=== PATIENT | female | born 1995 | race Caucasian/White ===

== ENCOUNTER 2017-04-20 12:04 | Emergency (ER) | payer MEDICAID ==
[2017-04-20 12:26] VITALS: BP 107/61
[2017-04-20] MEDS ORDERED: NORMAL SALINE 1000 ML 1,000 ML IV PRN (14:39)
--- NOTE | 2017-04-20 14:43 | ER Document Report ---
ED Medical Screen (RME) - General Chief Complaint: Vaginal Bleeding Stated Complaint: VAGINAL BLEEDING Time Seen by Provider: 04/20/17 14:32 Mode of Arrival: Ambulatory Information source: Patient, Parent TRAVEL OUTSIDE OF THE [place] IN LAST 30 DAYS: No - HPI Notes: 04/20/17 14:40 22-year-old 2 para 0 type I diabetic who is 10 weeks 5 days presents today with complaints of vaginal bleeding and lower abdominal pain that started 6 days ago but reports she started hemorrhaging this morning going through 5 pads an hour. Reports she was seen by her QUALITY AUDITOR, Dr. Anand, told she was likely miscarrying. Denies any fevers or chills. Patient checked her blood sugar prior to coming to emergency room, states blood sugar was 208. Reports pain is 5 out of 10, throbbing achy. Worse with time, nothing makes better. Has not tried any ppjx-kdl-[id number] medications. I have greeted and performed a rapid initial assessment of this patient. A comprehensive ED assessment and evaluation of the patient, analysis of test results and completion of medical decision making process will be conducted by an additional ED providers. - Related Data Allergies/Adverse Reactions: amoxicillin Allergy (Verified 04/20/17 12:06) Past Medical History - General Information source: Patient, Parent - Social History Family history: Reviewed & Not Pertinent Review of Systems - Review of Systems Constitutional: No symptoms reported EENT: No symptoms reported Cardiovascular: No symptoms reported Respiratory: No symptoms reported Gastrointestinal: No symptoms reported Genitourinary: See HPI Female Genitourinary: See HPI Musculoskeletal: No symptoms reported Skin: No symptoms reported Hematologic/Lymphatic: No symptoms reported Neurological/Psychological: No symptoms reported Physical Exam - Vital signs Vitals: Temp Pulse Resp BP Pulse Ox 98.6 F 103 H 16 107/61 99 04/20/17 12:19 04/20/17 12:19 04/20/17 12:19 04/20/17 12:19 04/20/17 12:19 - Respiratory Respiratory status: No respiratory distress Chest status: Nontender Breath sounds: Normal Chest palpation: Normal - Cardiovascular Rhythm: Regular Heart sounds: Normal auscultation Murmur: No Normal capillary refill: No - Abdominal Inspection: Normal Distension: No distension Bowel sounds: Normal Tenderness: Tender - suprapubic area. No: McBurney's point, Bynum's sign Organomegaly: No organomegaly Course - Vital Signs Vital signs: Temp Pulse Resp BP Pulse Ox 98.6 F 103 H 16 107/61 99 04/20/17 12:19 04/20/17 12:19 04/20/17 12:19 04/20/17 12:19 04/20/17 12:19
[2017-04-20] MEDS ORDERED: KETOROLAC TROMETHAMINE INJ/PF 30 MG/1 ML SDV IV ONE (15:35)
--- NOTE | 2017-04-20 15:35 | RADIOLOGY REPORT (SQ) ---
EXAM DESCRIPTION: U/S OB TRANSVAG W/DOPPLER COMPLETED DATE/TIME: 04/20/2017 3:25 pm REASON FOR STUDY: 10 weeks 5 days, vag bleed, 4 pads/hr COMPARISON: None. TECHNIQUE: Transvaginal static and realtime grayscale images acquired of the pelvis. Additional catherine cted spectral and color Doppler images recorded. All images stored on PACs. BHCG: Not available. LIMITATIONS: None. FINDINGS: UTERUS: No visualized intrauterine . Thickened heterogeneous endometrium with fl uid in the cervix. RIGHT ADNEXA: Normal ovary with normal vascular flow. No adnexal free fluid. No adnexal masses. LEFT ADNEXA: Ovary not identified. No adnexal free fluid. No adnexal masses. FREE FLUID: None. OTHER: No other significant finding. IMPRESSION: NO VISUALIZED INTRA- OR EXTRAUTERINE . bHCG LEVEL NOT AVAILABLE FOR CORRELATION WITH US FINDINGS. ECTOPIC CANNOT BE EXCLUDED. FOLLOW-UP ULTRASOUND AND SERIAL BHCG LEVELS STRONGLY RECOMMENDED TO ACCURATELY ASSESS STATU S. TECHNICAL DOCUMENTATION: JOB ID: [id number] [employer]- All Rights Reserved
[2017-04-20 16:14] LABS: ABSOLUTE BASOPHILS # (AUTO) 0.1 10^3/uL (0.0-0.2); ABSOLUTE EOSINOPHILS # (AUTO) 0.2 10^3/uL (0.0-0.6); ABSOLUTE LYMPHOCYTES (AUTO) 1.6 10^3/uL (0.5-4.7); ABSOLUTE MONOCYTES (AUTO) 0.4 10^3/uL (0.1-1.4); ABSOLUTE NEUT (AUTO) 8.3 10^3/uL (1.7-8.2); BASOPHILS % (AUTO) 0.5 % (0-2); EOSINOPHILS % (AUTO) 2.3 % (0-6); HEMATOCRIT 40.1 % (36.0-47.0); HEMOGLOBIN 13.9 g/dL (12.0-15.5); LYMPHOCYTES % (AUTO) 15.5 % (13-45); MEAN CORPUSCULAR HGB CONC 34.6 g/dL (32.0-36.0); MEAN CORPUSCULAR VOLUME 93 fl (80-97); MONOCYTES % (AUTO) 3.4 % (3-13); PLATELET COUNT 318 10^3/uL (150-450); RED BLOOD COUNT 4.34 10^6/uL (3.72-5.28); RED CELL DISTRIBUTION WIDTH 13.2 % (11.5-14.0); SEGMENTED NEUTROPHILS % (AUTO) 78.3 % (42-78); TOTAL CELLS COUNTED % (AUTO) 100 %; WHITE BLOOD COUNT 10.5 10^3/uL (4.0-10.5)
[2017-04-20 16:18] LABS: ALANINE AMINOTRANSFERASE 23 U/L (9-52); ALBUMIN 4.7 g/dL (3.5-5.0); ALKALINE PHOSPHATASE 72 U/L (38-126); ANION GAP 13 (5-19); ASPARTATE AMINO TRANSFERASE 21 U/L (14-36); BILIRUBIN,TOTAL 1.4 mg/dL (0.2-1.3); BLOOD UREA NITROGEN 10 mg/dL (7-20); CALCIUM 10.3 mg/dL (8.4-10.2); CARBON DIOXIDE 24 mmol/L (22-30); CHLORIDE 103 mmol/L (98-107); GLUCOSE 236 mg/dL (75-110); POTASSIUM 4.5 mmol/L (3.6-5.0); SODIUM 139.5 mmol/L (137-145); TOTAL PROTEIN 7.7 g/dL (6.3-8.2)
[2017-04-20 17:13] LABS: APPEARANCE,URINE SLIGHTLY-CLOUDY; BILIRUBIN,URINE NEGATIVE (NEGATIVE); COLOR,URINE YELLOW; GLUCOSE, URINE 150 mg/dL (NEGATIVE); KETONES,URINE NEGATIVE (NEGATIVE); LEUKOCYTE ESTERASE,URINE NEGATIVE (NEGATIVE); NITRITE,URINE NEGATIVE (NEGATIVE); PROTEIN,URINE 30 mg/dL (NEGATIVE); URINE SPECIFIC GRAVITY 1.028; UROBILINOGEN,URINE NEGATIVE mg/dL (<2.0)
--- NOTE | 2017-04-20 18:45 | ER Document Report ---
ED General - General Chief Complaint: Vaginal Bleeding Stated Complaint: VAGINAL BLEEDING Time Seen by Provider: 04/20/17 14:32 Mode of Arrival: Ambulatory TRAVEL OUTSIDE OF THE [place] IN LAST 30 DAYS: No - HPI Notes: 22-year-old 2 para 0 type I diabetic who is 10 weeks 5 days presents today with complaints of vaginal bleeding and lower abdominal pain that started 6 days ago but reports she started hemorrhaging this morning going through 5 pads an hour. Reports she was seen by her RIVET STICKER, Dr. Anand, told she was likely miscarrying. Denies any fevers or chills. Patient checked her blood sugar prior to coming to emergency room, states blood sugar was 208. Reports pain is 5 out of 10, throbbing achy. Worse with time, nothing makes better. Has not tried any fubj-xsl-jaynkyc medications. - Related Data Allergies/Adverse Reactions: amoxicillin Allergy (Verified 04/20/17 12:06) Past Medical History - General Information source: Patient, Parent - Social History Smoking Status: Current Every Day Smoker Chew tobacco use (# tins/day): No Frequency of alcohol use: Occasional Drug Abuse: None Family History: Reviewed & Not Pertinent Patient has suicidal ideation: No Patient has homicidal ideation: No Endocrine Medical History: Reports: Hx Diabetes Mellitus Type 1 Renal/ Medical History: Denies: Hx Peritoneal Dialysis Past Surgical History: Reports: Hx Tonsillectomy Review of Systems - Review of Systems Constitutional: No symptoms reported EENT: No symptoms reported Cardiovascular: No symptoms reported Respiratory: No symptoms reported Gastrointestinal: No symptoms reported Genitourinary: See HPI Female Genitourinary: No symptoms reported Musculoskeletal: No symptoms reported Skin: No symptoms reported Hematologic/Lymphatic: No symptoms reported Neurological/Psychological: No symptoms reported Physical Exam - Vital signs Vitals: Temp Pulse Resp BP Pulse Ox 98.6 F 103 H 16 107/61 99 04/20/17 12:19 04/20/17 12:19 04/20/17 12:19 04/20/17 12:19 04/20/17 12:19 - Notes Notes: PHYSICAL EXAMINATION: GENERAL: Well-appearing, well-nourished and in no acute distress. HEAD: Atraumatic, normocephalic. EYES: Pupils equal round and reactive to light, extraocular movements intact, conjunctiva are normal. ENT: Nares patent, oropharynx clear without exudates. Moist mucous membranes. NECK: Normal range of motion, supple without lymphadenopathy LUNGS: Breath sounds clear to auscultation bilaterally and equal. No wheezes rales or rhonchi. HEART: Regular rate and rhythm without murmurs ABDOMEN: Soft, nontender, nondistended abdomen. No guarding, no rebound. No masses appreciated. Female : deferred Musculoskeletal: Normal range of motion, no pitting or edema. No cyanosis. NEUROLOGICAL: Cranial nerves grossly intact. Normal speech, normal gait. Normal sensory, motor exams PSYCH: Normal mood, normal affect. SKIN: Warm, Dry, normal turgor, no rashes or lesions noted. Course - Re-evaluation Re-evalutation: Rechecked the patient who is resting comfortably. On re-exam, patient is symptomatically improved. Discussed the results of the labs/radiology as well as the diagnosis at great length, discussed with patient that we do not have a previous beta hCG to compare, she needs to return to ER or follow up with her OBGYN in 48 hours for repeat beta hCG as well as another transvaginal ultrasound so we can exclude ectopic . Blood work shows that she is not anemic. She needs to follow-up with her RIVET STICKER within 2 days spontaneous miscarriage. discussed the need to return to the ER for any new or worsening sx. Patient understands to take the Rx as directed. All questions answered by this provider. Patient agreed with plan of care and verbalized understanding of plan of care. Patient comfortable with the decision to go home. - Vital Signs Vital signs: Temp Pulse Resp BP Pulse Ox 98.6 F 103 H 16 107/61 99 04/20/17 12:19 04/20/17 12:19 04/20/17 12:19 04/20/17 12:19 04/20/17 12:19 - Laboratory Result Diagrams: 04/20/17 15:40 04/20/17 15:40 Laboratory results interpreted by me: 04/20/17 04/20/17 04/20/17 15:40 15:40 16:45 Seg Neutrophils % 78.3 H Absolute Neutrophils 8.3 H Glucose 236 H Calcium 10.3 H Total Bilirubin 1.4 H Beta HCG, Quant 575.79 H Urine Protein 30 H Urine Glucose (UA) 150 H Urine Blood LARGE H Discharge - Discharge Clinical Impression: Miscarriage Condition: Good Disposition: HOME, SELF-CARE Additional Instructions: Miscarriage You have had a miscarriage (medically called a "spontaneous "). The miscarriage occurred because the fetus did not develop normally. There is nothing you did to cause it, and nothing you could have done to prevent it. About one in four ends in miscarriage. You should rest in bed for two or three days. As there is some risk of infection of the uterus, you should not have intercourse for one week (or until okayed by your physician). You might not have a period for six to eight weeks. You should not become again for at least three months -- the uterus requires time to get back to normal. Call the doctor or return for re-examination if there is heavy or persistent vaginal bleeding, fever, foul discharge, continued cramping pains, or abdominal pain. Return in 48 hours to ER follow-up with RIVET STICKER within 48 hours for repeat quantitative hCG and ultrasound to rule out ectopic . Return immediately for any new or worsening symptoms. Follow up with primary care provider, call tomorrow to make followup appointment.
== END 2017-04-20 19:10 | disposition home or self-care (01) ==
LOC: ER 12:04
DX: O03.9 Complete or unspecified spontaneous abortion without complication (principal); Z3A.10 10 weeks gestation of pregnancy; Z88.0 Allergy status to penicillin
CPT/HCPCS: 99284; 96361; 96374; 86900; 86901; 36415; 87086; 84702; 85025; 87088; 80053; 81001; 76817; 93976; J1885; J7030

== ENCOUNTER 2018-01-16 15:07 | Outpatient (CLI) | payer MEDICAID | END 2018-01-16 15:47 | disposition home or self-care (01) | LOC: LC 15:07 | PROVIDERS: ATTEND Obstetrics & Gynecology | PROC: 4A1HXCZ Monitoring of Products of Conception, Cardiac Rate, External Approach (ICD-10-PCS; principal; 2018-01-16) | DX: Z34.93 Encounter for supervision of normal pregnancy, unspecified, third trimester (principal); Z3A.33 33 weeks gestation of pregnancy | CPT/HCPCS: 59025 ==

== ENCOUNTER 2018-01-22 16:00 | Outpatient (CLI) | payer MEDICAID ==
[2018-01-22 16:57] LABS: APPEARANCE,URINE CLEAR; BILIRUBIN,URINE NEGATIVE (NEGATIVE); COLOR,URINE YELLOW; GLUCOSE, URINE >=500 mg/dL (NEGATIVE); KETONES,URINE NEGATIVE (NEGATIVE); LEUKOCYTE ESTERASE,URINE NEGATIVE (NEGATIVE); NITRITE,URINE NEGATIVE (NEGATIVE); PROTEIN,URINE NEGATIVE (NEGATIVE); UROBILINOGEN,URINE NEGATIVE mg/dL (<2.0)
[2018-01-22 17:16] LABS: HEMATOCRIT 34.3 % (36.0-47.0); MEAN CORPUSCULAR HEMOGLOBIN 30.3 pg (27.0-33.4); MEAN CORPUSCULAR VOLUME 87 fl (80-97); PLATELET COUNT 255 10^3/uL (150-450); RED BLOOD COUNT 3.96 10^6/uL (3.72-5.28); RED CELL DISTRIBUTION WIDTH 12.6 % (11.5-14.0); WHITE BLOOD COUNT 8.5 10^3/uL (4.0-10.5)
[2018-01-22 17:17] LABS: URINE AMPHETAMINES SCREEN NEGATIVE; URINE BARBITURATES SCREEN NEGATIVE; URINE BENZODIAZEPINES SCREEN NEGATIVE; URINE COCAINE SCREEN NEGATIVE; URINE MARIJUANA (THC) SCREEN NEGATIVE; URINE METHADONE SCREEN NEGATIVE; URINE PHENCYCLIDINE SCREEN NEGATIVE
[2018-01-22 17:21] LABS: UR PRO/CREAT RATIO RESULT 0.4 mg/mg (0.0-0.2)
[2018-01-22 17:37] LABS: ALANINE AMINOTRANSFERASE 25 U/L (9-52); ALBUMIN 2.7 g/dL (3.5-5.0); ALKALINE PHOSPHATASE 100 U/L (38-126); ANION GAP 10 (5-19); ASPARTATE AMINO TRANSFERASE 32 U/L (14-36); BILIRUBIN,DIRECT 0.2 mg/dL (0.0-0.4); BILIRUBIN,TOTAL 0.6 mg/dL (0.2-1.3); BLOOD UREA NITROGEN 15 mg/dL (7-20); CALCIUM 8.9 mg/dL (8.4-10.2); CARBON DIOXIDE 18 mmol/L (22-30); CHLORIDE 107 mmol/L (98-107); GLUCOSE 173 mg/dL (75-110); POTASSIUM 4.2 mmol/L (3.6-5.0); SODIUM 134.5 mmol/L (137-145); TOTAL PROTEIN 5.8 g/dL (6.3-8.2)
--- NOTE | 2018-01-22 18:34 | L&D Progress Notes ---
PROGRESS NOTES Datetime Report Generated by CPN: 01/22/2018 18:34 PROGRESS NOTE Impression Other: elevated blood pressure Procedures- Other: [facility] labs Plan: Continue Present Management Plan Other: monitor Vital Signs : Reviewed; Within Normal Limits Comment: Pt here today secondary to elevated BPs in the office. She denies HAs, vision changes and RUQ tenderness. [facility] labs were mildly abnormal. Uric acid, AST and ALT slightly elevated. Her P:C= 0.4. Her BP is mildly elevated. Will discharge pt with 24 hr urine and pre-eclampsia precautions. FETUS A FHR - Baseline: 140s Monitoring: External US Accelerations: 15X15 Decelerations: None FHR Category: Category I : 34.2 SIGNATURE SIGNATURE: [id number] Signature: with User ID: [email or web address]
== END 2018-01-22 18:39 | disposition home or self-care (01) ==
LOC: LC 16:00
PROVIDERS: ATTEND Obstetrics & Gynecology
PROC: 4A1HXCZ Monitoring of Products of Conception, Cardiac Rate, External Approach (ICD-10-PCS; principal; 2018-01-22)
DX: O14.93 Unspecified pre-eclampsia, third trimester (principal); Z3A.34 34 weeks gestation of pregnancy
CPT/HCPCS: 36415; 59025; 80053; 80307; 81001; 82570; 83615; 84156; 84550; 85027

== ENCOUNTER 2018-01-24 13:50 | Outpatient (CLI) | payer MEDICAID ==
--- NOTE | 2018-01-24 14:25 | Non Stress Test Report ---
Non Stress Test Datetime Report Generated by CPN: 01/24/2018 14:24 DEMOGRAPHIC EGA NST: 34.4 EGA NST: 34.2 EGA NST: 33.3 INDICATION Indication for Study: Diabetes Mellitus Indication for Study: Ordered by Provider Indication for Study: Ordered by Provider Indication for Study (NST) Other: twice weekly testing VITAL SIGNS Temperature - NST: 98.5 Pulse - NST: 88 RESP - NST: 18 NBPSYS NST: 133 NBPDIA NST: 75 MONITORING Monitor Explained: Monitor Explained; Test Explained; Patient Verbalized Understanding Monitor Explained: Monitor Explained; Test Explained; Patient Verbalized Understanding Monitor Explained: Monitor Explained; Test Explained; Patient Verbalized Understanding Time on Monitor: 01/24/2018 14:01 Time on Monitor: 01/22/2018 16:16 Time on Monitor: 01/16/2018 15:19 Time off Monitor: 01/24/2018 14:22 NST Duration: 21 NST INTERVENTIONS NST Interventions: PO Hydration NST Interventions: IV Fluids NST Interventions: None Physician Notified NST: A Amos CNM Physician Notified NST: J Goss CNM BABY A: [id number] BABY A Movement : Present Movement : Present Contraction Frequency : 0 Contraction Frequency : none FHR Baseline : 150 FHR Baseline : 145 Accelerations : 15X15 Accelerations : 15X15 Decelerations : None Decelerations : None Variability : Moderate 6-25bpm Variability : Moderate 6-25bpm NST Review: Meets Criteria for Reactive NST NST Review: Meets Criteria for Reactive NST NST Review and Verified By : Senait Teixeira RN NST Review and Verified By : EDEN Charles NST Results: Reactive NST Results: Reactive NST REPORT Report Trigger: Send Report
[2018-01-24 14:40] LABS: URINE PROTEIN 49.1 mg/dL (<12)
[2018-01-24 14:43] LABS: 24 HOUR URINE PROTEIN RESULT 874 mg/day (42-225)
== END 2018-01-24 14:38 | disposition home or self-care (01) ==
LOC: LC 13:50
PROVIDERS: ATTEND Obstetrics & Gynecology
PROC: 4A1HXCZ Monitoring of Products of Conception, Cardiac Rate, External Approach (ICD-10-PCS; principal; 2018-01-24)
DX: O24.913 Unspecified diabetes mellitus in pregnancy, third trimester (principal); Z3A.34 34 weeks gestation of pregnancy; Z79.4 Long term (current) use of insulin
CPT/HCPCS: 59025; 84156

== ENCOUNTER 2018-01-27 13:02 | Inpatient (IN) | payer MEDICAID ==
[2018-01-27] MEDS ORDERED: HYDRALAZINE HCL INJ/PF 20 MG/1 ML SDV IV ONE ×2 (13:39→19:00)
[2018-01-27] MEDS ORDERED: BUTALB/ACETAMINOPHEN/CAFFEINE 1 TAB EACH PO ONE (13:40)
--- NOTE | 2018-01-27 14:03 | PDOC H&P ---
History of Present Illness Admission Date/PCP: ALEE HUNT DO Patient complains of: headache x 2 days not relieved with tylenol and painful swollen lower extremities History of Present Illness: MORGAN ADAME is a 22 year old female G1 @ 35 0/7 with Class C DM and PreEclampsia. Has had CRUZ x 2 days and increased bps as noted at her [facility] appt today. Dr. Cadena ([facility]) contacted me today to admit patient for evaluation and recommends that patient should be admitted until she is delivered. Patient indicates that her lower extremities have been swollen for several days and have become painful with mobility. States last time she took tylenol was this am around 3:00 and her CRUZ is not relieved. Indicates good movement. Past Medical History Medical History: Other - as per HPI. Has been DM since age 8. Hypothyroid Endocrine Medical History: Reports: Diabetes Mellitus Type 1 Renal/ Medical History: Reports: Other Past Surgical History Past Surgical History: Reports: Tonsillectomy Social History Information Source: Patient Lives with: Family Smoking Status: Never Smoker Family History Family History: Reviewed & Not Pertinent Parental Family History Reviewed: Yes Children Family History Reviewed: Yes Sibling(s) Family History Reviewed.: Yes Medication/Allergy Home Medications: Cholecalciferol (Vitamin D3) [Vitamin D3 5000 unit Capsule] 5,000 unit PO DAILY 01/16/18 Insulin Aspart [Novolog Insulin 100 Unit/1 ml 10 ml] 87 unit SQ PRN PRN Levothyroxine Sodium 175 mcg PO DAILY 01/16/18 No122/Iron/Folic Acid [ Multi Tablet] 1 each PO DAILY 01/16/18 Allergies/Adverse Reactions: amoxicillin Allergy (Verified 04/20/17 12:06) Physical Exam - Physical Exam Vital Signs: Intake & Output 01/26/18 01/27/18 01/28/18 06:59 06:59 06:59 Weight 82.1 kg General appearance: PRESENT: no acute distress, cooperative GI/Abdominal exam: PRESENT: other - gravid, nontender Extremities exam: PRESENT: pedal edema - 2+, +2 edema Musculoskeletal exam: PRESENT: ambulatory Neurological exam: PRESENT: alert, altered, awake Assessment & Plan - Diagnosis (1) Qualifiers: Weeks of gestation: 35 weeks Qualified Code(s): Z3A.35 - 35 weeks gestation of Is this a current diagnosis for this admission?: Yes (2) Diabetes 1.5, managed as type 1 Is this a current diagnosis for this admission?: Yes (3) Pre-eclampsia Qualifiers: Trimester: third trimester Qualified Code(s): O14.93 - Unspecified pre- eclampsia, third trimester Is this a current diagnosis for this admission?: Yes (4) Hypothyroid Qualifiers: Hypothyroidism type: unspecified Qualified Code(s): E03.9 - Hypothyroidism , unspecified Is this a current diagnosis for this admission?: Yes - Time Time Spent: 30 to 50 Minutes Anticipated discharge: Home Within: Other - Inpatient Certification Based on my medical assessment, after consideration of the patient's comorbidities, presenting symptoms, or acuity I expect that the services needed warrant INPATIENT care.: Yes I certify that my determination is in accordance with my understanding of Medicare's requirements for reasonable and necessary INPATIENT services [42 CFR 412.3e].: Yes Medical Necessity: Need Close Monitoring Due to Risk of Patient Decompensation - will admit for monitoring until delivery based on recommendations from [facility]. Patient is on an insulin pump now. [facility] has recommended an insulin drip however , will reserve this until feel that delivery is imminent. Have reviewed the patient's BSL. Hydralazine given for BPs and will attempt treatment of CRUZ with Fioricet. If symptoms persist, will proceed with early delivery if diagnosis of Pre E with Severe Features is established.
[2018-01-27] MEDS ORDERED: BUTALB/ACETAMINOPHEN/CAFFEINE 1 TAB EACH ONE ×2 (14:05→14:13)
[2018-01-27] MEDS ORDERED: HYDRALAZINE HCL INJ/PF 20 MG/1 ML SDV ONE ×2 (14:05→18:34)
[2018-01-27 14:28] LABS: APPEARANCE,URINE SLIGHTLY-CLOUDY; BILIRUBIN,URINE NEGATIVE (NEGATIVE); COLOR,URINE YELLOW; GLUCOSE, URINE 150 mg/dL (NEGATIVE); KETONES,URINE NEGATIVE (NEGATIVE); LEUKOCYTE ESTERASE,URINE NEGATIVE (NEGATIVE); NITRITE,URINE NEGATIVE (NEGATIVE); PROTEIN,URINE >=500 mg/dL (NEGATIVE); URINE SPECIFIC GRAVITY 1.013; UROBILINOGEN,URINE NEGATIVE mg/dL (<2.0)
[2018-01-27 14:34] LABS: ABSOLUTE EOSINOPHILS # (AUTO) 0.1 10^3/uL (0.0-0.6); ABSOLUTE LYMPHOCYTES (AUTO) 1.4 10^3/uL (0.5-4.7); ABSOLUTE MONOCYTES (AUTO) 0.4 10^3/uL (0.1-1.4); ABSOLUTE NEUT (AUTO) 6.1 10^3/uL (1.7-8.2); BASOPHILS % (AUTO) 0.4 % (0-2); HEMATOCRIT 33.6 % (36.0-47.0); HEMOGLOBIN 11.9 g/dL (12.0-15.5); LYMPHOCYTES % (AUTO) 17.1 % (13-45); MEAN CORPUSCULAR HEMOGLOBIN 30.4 pg (27.0-33.4); MEAN CORPUSCULAR HGB CONC 35.3 g/dL (32.0-36.0); MEAN CORPUSCULAR VOLUME 86 fl (80-97); PLATELET COUNT 241 10^3/uL (150-450); RED CELL DISTRIBUTION WIDTH 12.6 % (11.5-14.0); SEGMENTED NEUTROPHILS % (AUTO) 76.5 % (42-78); TOTAL CELLS COUNTED % (AUTO) 100 %
[2018-01-27 14:56] LABS: ALANINE AMINOTRANSFERASE 22 U/L (9-52); ALBUMIN 2.6 g/dL (3.5-5.0); ALKALINE PHOSPHATASE 116 U/L (38-126); ANION GAP 9 (5-19); ASPARTATE AMINO TRANSFERASE 32 U/L (14-36); BILIRUBIN,DIRECT 0.1 mg/dL (0.0-0.4); BILIRUBIN,TOTAL 0.4 mg/dL (0.2-1.3); BLOOD UREA NITROGEN 15 mg/dL (7-20); CALCIUM 9.3 mg/dL (8.4-10.2); CARBON DIOXIDE 19 mmol/L (22-30); CHLORIDE 108 mmol/L (98-107); GLUCOSE 180 mg/dL (75-110); POTASSIUM 4.1 mmol/L (3.6-5.0); SODIUM 135.9 mmol/L (137-145); TOTAL PROTEIN 5.5 g/dL (6.3-8.2); URIC ACID 5.8 mg/dL (2.5-6.2)
[2018-01-27 18:47] LABS: URINE AMPHETAMINES SCREEN NEGATIVE; URINE BARBITURATES SCREEN NEGATIVE; URINE BENZODIAZEPINES SCREEN NEGATIVE; URINE COCAINE SCREEN NEGATIVE; URINE MARIJUANA (THC) SCREEN NEGATIVE; URINE METHADONE SCREEN NEGATIVE; URINE PHENCYCLIDINE SCREEN NEGATIVE
[2018-01-27] MEDS ORDERED: INSULIN REG, HUMAN 100 UNIT/ML 3 ML VIAL (PYX) IV ONE (20:41)
[2018-01-27] MEDS ORDERED: DINOPROSTONE 10 MG VAGINAL INSERT.SR PV PRN (20:45)
[2018-01-27] MEDS ORDERED: DEXTROSE 40% GEL 15 GM TUBE X 2 PO PRN (20:47)
[2018-01-27] MEDS ORDERED: DEXTROSE 40% GEL 15 GM TUBE PO PRN (20:47)
[2018-01-27] MEDS ORDERED: DEXTROSE 50%-WATER SYRINGE 12.5 GM/25 ML DOSE IV PRN (20:47)
[2018-01-27] MEDS ORDERED: GLUCAGON,HUMAN RECOMB 1 MG INJ IM PRN (20:47)
[2018-01-27] MEDS ORDERED: DEXTROSE 50%-WATER SYRINGE 25 GM/50 ML DOSE IV PRN (20:47)
[2018-01-27] MEDS ORDERED: DINOPROSTONE 10 MG VAGINAL INSERT.SR ONE (21:00)
[2018-01-27] MEDS: INSULIN, REGULAR 100 UNIT/100 ML NORMAL SALINE IV PRN ×2 (21:37)
[2018-01-27] MEDS ORDERED: PROCHLORPERAZINE MALEATE 10 MG TABLET ONE (21:44)
[2018-01-27] MEDS ORDERED: ACETAMINOPHEN WITH CODEINE #3 TABLET ONE (21:44)
[2018-01-27] MEDS ORDERED: ACETAMINOPHEN WITH CODEINE #3 TABLET PO ONE (22:00)
[2018-01-27] MEDS ORDERED: PROCHLORPERAZINE MALEATE 10 MG TABLET PO ONE (22:00)
[2018-01-28] MEDS ORDERED: ZOLPIDEM TARTRATE 5 MG TABLET ONE (00:22)
[2018-01-28] MEDS ORDERED: NALBUPHINE HCL INJ 10 MG/1 ML AMPULE ONE ×2 (03:25→08:35)
[2018-01-28] MEDS ORDERED: NALBUPHINE HCL INJ 10 MG/1 ML AMPULE INJ ONE (03:25)
[2018-01-28] MEDS ORDERED: PROMETHAZINE HCL INJ 25 MG/1 ML VIAL IV ONE ×2 (03:25→11:27)
[2018-01-28] MEDS ORDERED: PROMETHAZINE HCL INJ 25 MG/1 ML VIAL ONE ×2 (03:25→11:29)
[2018-01-28] MEDS ORDERED: DEXTROSE 5%-1/2 NORMAL SALINE 1,000 ML IV PRN (07:56)
[2018-01-28] MEDS ORDERED: CLINDAMYCIN 900 MG/D5W RTU 900 MG/50 ML RTUPB IV ONE (08:36)
[2018-01-28] MEDS: CLINDAMYCIN 900 MG/D5W RTU 900 MG/50 ML RTUPB IV SCH (08:57)
[2018-01-28] MEDS ORDERED: VALACYCLOVIR HCL 500 MG TABLET ONE (09:32)
[2018-01-28] MEDS: VALACYCLOVIR HCL 500 MG TABLET PO SCH (10:11)
[2018-01-28] MEDS ORDERED: FUROSEMIDE INJ/PF 40 MG/4 ML SDV ONE (10:22)
[2018-01-28] MEDS ORDERED: FUROSEMIDE INJ/PF 20 MG/2 ML SDV IV ONE (10:23)
[2018-01-28] MEDS ORDERED: PHENYLEPHRINE HCL INJ/PF 10 MG/1 ML SDV ONE (10:46)
[2018-01-28] MEDS ORDERED: EPHEDRINE SULFATE INJ 50 MG/1 ML AMPULE ONE (10:47)
[2018-01-28] MEDS ORDERED: FENTANYL CITRATE INJ/PF 100 MCG/2 ML AMPUL ONE ×2 (10:47→19:01)
[2018-01-28] MEDS ORDERED: BUPIVACAINE HCL 0.5 % INJ/PF 30 ML SDV ONE (10:48)
[2018-01-28] MEDS ORDERED: FENTANYL/BUPIVACAINE/NS/PF 300 MCG/150 ML RTUINJ EPI ONE (10:48)
[2018-01-28] MEDS ORDERED: OXYTOCIN/NORMAL SALINE 20 UNIT/1,000 ML RTUINJ IV PRN ×2 (11:00→20:53)
--- NOTE | 2018-01-28 11:00 | PDOC PROGRESS REPORT ---
Subjective Progress Note for:: 01/28/18 - @1029 Subjective:: Pt. reports pain 4/5 now, desires epidural for pain control Reason For Visit: IOL @ 35w1d Physical Exam - Physical Exam Vital Signs: Intake & Output 01/27/18 01/28/18 01/29/18 06:59 06:59 06:59 Intake Total 11 Balance 11 Weight 82.1 kg General appearance: PRESENT: no acute distress Exam: denies headache at this time, VSS, Cat I tracing, UC q 2-3min, moderate to palpation, insulin drip remains at 2.5u/hr, upper and lower extremity edema as stated (mild on upper extremities), lungs clear, heart-NSR Respiratory exam: PRESENT: clear to auscultation yoselin Cardiovascular exam: PRESENT: RRR. ABSENT: diastolic murmur, rubs, systolic murmur Pulses: PRESENT: normal dorsalis pedis pul, +2 pedal pulses bilateral Extremities exam: PRESENT: other - +4 pitting edema bilaterally with edema up to knees and tender Musculoskeletal exam: PRESENT: full ROM Neurological exam: PRESENT: alert, oriented to person, oriented to place, oriented to time Psychiatric exam: PRESENT: normal mood - breathing with contractions - Gynecological Exam Labia: normal Urethra: normal - mckeon catheter in place - Obstetrical Exam External Genitalia: normal Vagina: normal Dilation (cm): 4 Effacement (%): 80 - SROM @ 0630 but forebag palpated and AROMed on Exam Station: -2 Tender: Yes Result Laboratory Results: 01/27/18 13:55 01/27/18 13:55 01/27/18 01/27/18 01/27/18 13:09 13:55 13:55 WBC 8.0 RBC 3.90 Hgb 11.9 L Hct 33.6 L MCV 86 MCH 30.4 MCHC 35.3 RDW 12.6 Plt Count 241 Seg Neutrophils % 76.5 Lymphocytes % 17.1 Monocytes % 5.0 Eosinophils % 1.0 Basophils % 0.4 Absolute Neutrophils 6.1 Absolute Lymphocytes 1.4 Absolute Monocytes 0.4 Absolute Eosinophils 0.1 Absolute Basophils 0.0 Sodium 135.9 L Potassium 4.1 Chloride 108 H Carbon Dioxide 19 L Anion Gap 9 BUN 15 Creatinine 0.60 Est GFR ( Amer) > 60 Est GFR (Non-Af Amer) > 60 Glucose 180 H Uric Acid 5.8 Calcium 9.3 Total Bilirubin 0.4 AST 32 ALT 22 Alkaline Phosphatase 116 Total Protein 5.5 L Albumin 2.6 L Urine Color YELLOW Urine Appearance SLIGHTLY-CLOUDY Urine pH 6.0 Ur Specific [place] 1.013 Urine Protein >=500 H Urine Glucose (UA) 150 H Urine Ketones NEGATIVE Urine Blood NEGATIVE Urine Nitrite NEGATIVE Ur Leukocyte Esterase NEGATIVE Urine WBC (Auto) 2 Urine RBC (Auto) 1 Assessment & Plan - Diagnosis (1) Diabetes 1.5, managed as type 1 Is this a current diagnosis for this admission?: Yes (2) Hypothyroid Qualifiers: Hypothyroidism type: unspecified Qualified Code(s): E03.9 - Hypothyroidism , unspecified Is this a current diagnosis for this admission?: Yes (3) Pre-eclampsia Qualifiers: Trimester: third trimester Qualified Code(s): O14.93 - Unspecified pre- eclampsia, third trimester Is this a current diagnosis for this admission?: Yes (4) Qualifiers: Weeks of gestation: 35 weeks Qualified Code(s): Z3A.35 - 35 weeks gestation of Is this a current diagnosis for this admission?: Yes - Plan Summary Plan Summary: epidural now, will repeat PIH labs prior to epidural, 20mg IV lasix per Dr. Mendez now, pitocin to be started at this time. Additional Note: Pt. was initially admitted as antepartum observation until delivery, however, it was decided by Dr. Gar (MD control officer yesterday) that the patient would be induced and cervidil was placed last night. Insulin drip was also started at that time at 2.5 units/hr with hourly accu checks . Pt. with SROM at 0630 and now progressed to 4cm. Cervidil was removed by RN at 0830am. Discussed changes and physical exam with Dr. Mendez who is the physician control officer today and orders received. Pt. asked questions and verbalized understanding. Will continue IOL at this time.
[2018-01-28 11:31] LABS: ABSOLUTE LYMPHOCYTES (AUTO) 1.3 10^3/uL (0.5-4.7); ABSOLUTE MONOCYTES (AUTO) 0.7 10^3/uL (0.1-1.4); ABSOLUTE NEUT (AUTO) 9.3 10^3/uL (1.7-8.2); BASOPHILS % (AUTO) 0.2 % (0-2); EOSINOPHILS % (AUTO) 0.2 % (0-6); HEMATOCRIT 33.4 % (36.0-47.0); HEMOGLOBIN 11.6 g/dL (12.0-15.5); LYMPHOCYTES % (AUTO) 11.9 % (13-45); MEAN CORPUSCULAR HGB CONC 34.8 g/dL (32.0-36.0); MEAN CORPUSCULAR VOLUME 86 fl (80-97); MONOCYTES % (AUTO) 6.1 % (3-13); PLATELET COUNT 279 10^3/uL (150-450); RED BLOOD COUNT 3.87 10^6/uL (3.72-5.28); RED CELL DISTRIBUTION WIDTH 12.8 % (11.5-14.0); SEGMENTED NEUTROPHILS % (AUTO) 81.6 % (42-78); TOTAL CELLS COUNTED % (AUTO) 100 %; WHITE BLOOD COUNT 11.4 10^3/uL (4.0-10.5)
--- NOTE | 2018-01-28 11:31 | Progress Note ---
Provider Note Provider Note: S: pt. reports pain with contractions is now 5/5, labs pending, desires IV pain medication O: VSS, Cat I tracing, contractions 1.5-4 mod to palpation, cervix 4-5/90/-1 A: IUP @ 35w1d IOL for CHTN with superimposed [id number] P: nubain and phenergan 10mg/12.5mg IV for pain now, epidural prn, reasses as clinically indicated, earlier prn.
[2018-01-28] MEDS ORDERED: OXYTOCIN/NORMAL SALINE 20 UNIT/1,000 ML RTUINJ ONE (11:45)
[2018-01-28] MEDS ORDERED: MISOPROSTOL 0.2 MG TABLET ONE (11:45)
[2018-01-28] MEDS ORDERED: OXYTOCIN 10 UNIT/ML VIAL ONE (11:45)
[2018-01-28] MEDS ORDERED: LIDOCAINE 1% INJ-PF (10 MG/ML) 30 ML SDV ONE (11:45)
[2018-01-28 11:49] LABS: ALANINE AMINOTRANSFERASE 24 U/L (9-52); ALBUMIN 2.6 g/dL (3.5-5.0); ALKALINE PHOSPHATASE 114 U/L (38-126); ANION GAP 9 (5-19); ASPARTATE AMINO TRANSFERASE 31 U/L (14-36); BILIRUBIN,DIRECT 0.2 mg/dL (0.0-0.4); BILIRUBIN,TOTAL 0.6 mg/dL (0.2-1.3); BLOOD UREA NITROGEN 18 mg/dL (7-20); CALCIUM 8.3 mg/dL (8.4-10.2); CARBON DIOXIDE 20 mmol/L (22-30); CHLORIDE 108 mmol/L (98-107); GLUCOSE 92 mg/dL (75-110); POTASSIUM 3.9 mmol/L (3.6-5.0); SODIUM 136.8 mmol/L (137-145); TOTAL PROTEIN 5.7 g/dL (6.3-8.2)
[2018-01-28] MEDS ORDERED: NORMAL SALINE 1000 ML 1,000 ML IV PRN (12:04)
[2018-01-28] MEDS ORDERED: FAMOTIDINE 20 MG TABLET ONE (12:46)
[2018-01-28] MEDS ORDERED: METOCLOPRAMIDE HCL INJ/PF 10 MG/2 ML SDV ONE (12:46)
[2018-01-28] MEDS ORDERED: FAMOTIDINE INJ/PF 20 MG/2 ML SDV IV ONE (12:46)
--- NOTE | 2018-01-28 14:00 | PDOC PROGRESS REPORT ---
Subjective Progress Note for:: 01/28/18 Subjective:: patient now 4-5cm. pt desired epidural and epidural done by Dr. Wilcox. Insulin dripp had to be stopped due to symptomatic low BS - repeat was 122. Reason For Visit: Physical Exam - Physical Exam Vital Signs: Intake & Output 01/27/18 01/28/18 01/29/18 06:59 06:59 06:59 Intake Total 11 Balance 11 Weight 82.1 kg General appearance: PRESENT: no acute distress, well-developed, well-nourished Extremities exam: PRESENT: +2 edema, other - DTRs 2+ Musculoskeletal exam: PRESENT: other - epidural. Neurological exam: PRESENT: alert, awake, oriented to person, oriented to place , oriented to time, oriented to situation, CN II-XII grossly intact. ABSENT: motor sensory deficit Psychiatric exam: PRESENT: appropriate affect, normal mood. ABSENT: homicidal ideation, suicidal ideation - Gynecological Exam Labia: normal Urethra: normal - mckeon catheter in place - Obstetrical Exam External Genitalia: normal Vagina: normal Station: -2 Result Laboratory Results: 01/28/18 11:12 01/28/18 11:12 01/27/18 01/27/18 01/27/18 13:09 13:55 13:55 WBC 8.0 RBC 3.90 Hgb 11.9 L Hct 33.6 L MCV 86 MCH 30.4 MCHC 35.3 RDW 12.6 Plt Count 241 Seg Neutrophils % 76.5 Lymphocytes % 17.1 Monocytes % 5.0 Eosinophils % 1.0 Basophils % 0.4 Absolute Neutrophils 6.1 Absolute Lymphocytes 1.4 Absolute Monocytes 0.4 Absolute Eosinophils 0.1 Absolute Basophils 0.0 Sodium 135.9 L Potassium 4.1 Chloride 108 H Carbon Dioxide 19 L Anion Gap 9 BUN 15 Creatinine 0.60 Est GFR ( Amer) > 60 Est GFR (Non-Af Amer) > 60 Glucose 180 H Uric Acid 5.8 Calcium 9.3 Total Bilirubin 0.4 AST 32 ALT 22 Alkaline Phosphatase 116 Total Protein 5.5 L Albumin 2.6 L Urine Color YELLOW Urine Appearance SLIGHTLY-CLOUDY Urine pH 6.0 Ur Specific [place] 1.013 Urine Protein >=500 H Urine Glucose (UA) 150 H Urine Ketones NEGATIVE Urine Blood NEGATIVE Urine Nitrite NEGATIVE Ur Leukocyte Esterase NEGATIVE Urine WBC (Auto) 2 Urine RBC (Auto) 1 01/28/18 01/28/18 11:12 11:12 WBC 11.4 H RBC 3.87 Hgb 11.6 L Hct 33.4 L MCV 86 MCH 30.0 MCHC 34.8 RDW 12.8 Plt Count 279 Seg Neutrophils % 81.6 H Lymphocytes % 11.9 L Monocytes % 6.1 Eosinophils % 0.2 Basophils % 0.2 Absolute Neutrophils 9.3 H Absolute Lymphocytes 1.3 Absolute Monocytes 0.7 Absolute Eosinophils 0.0 Absolute Basophils 0.0 Sodium 136.8 L Potassium 3.9 Chloride 108 H Carbon Dioxide 20 L Anion Gap 9 BUN 18 Creatinine 0.95 Est GFR ( Amer) > 60 Est GFR (Non-Af Amer) > 60 Glucose 92 Uric Acid 7.0 H Calcium 8.3 L Total Bilirubin 0.6 AST 31 ALT 24 Alkaline Phosphatase 114 Total Protein 5.7 L Albumin 2.6 L Urine Color Urine Appearance Urine pH Ur Specific [place] Urine Protein Urine Glucose (UA) Urine Ketones Urine Blood Urine Nitrite Ur Leukocyte Esterase Urine WBC (Auto) Urine RBC (Auto) Assessment & Plan - Diagnosis (1) Diabetes 1.5, managed as type 1 Is this a current diagnosis for this admission?: Yes Plan: per ENdo needs Insulin gtt for at least 16 hours post placenta and then when stabilze may put on pump. Dr. Reyes will send pump settings. Will consult Hospitalist (2) Pre-eclampsia Qualifiers: Trimester: third trimester Qualified Code(s): O14.93 - Unspecified pre- eclampsia, third trimester Is this a current diagnosis for this admission?: Yes Plan: plan for magnesium - Time Time Spent with patient: 25-34 minutes Medications reviewed and adjusted accordingly: Yes Anticipated discharge: Home Within: within 72 hours - Inpatient Certification Based on my medical assessment, after consideration of the patient's comorbidities, presenting symptoms, or acuity I expect that the services needed warrant INPATIENT care.: Yes I certify that my determination is in accordance with my understanding of Medicare's requirements for reasonable and necessary INPATIENT services [42 CFR 412.3e].: Yes Medical Necessity: Need Close Monitoring Due to Risk of Patient Decompensation, Need For IV Fluids, Need for Pain Control
[2018-01-28] MEDS ORDERED: MAGNESIUM SULFATE 20 GM/500 ML RTUINJ IV PRN (15:30)
[2018-01-28] MEDS ORDERED: MAGNESIUM SULFATE 4 GM/100 ML RTUPB IV ONE ×2 (16:00→19:48)
[2018-01-28] MEDS ORDERED: MAGNESIUM SULFATE 20 GM/500 ML RTUINJ IV ONE (19:48)
[2018-01-28] MEDS ORDERED: FENTANYL CITRATE INJ/PF 100 MCG/2 ML AMPUL IV ONE (20:00)
[2018-01-28] MEDS ORDERED: MEASLES,MUMPS&RUBELLA VACC/PF 0.5 ML VIAL SUBCUT PRN (20:53)
[2018-01-28] MEDS ORDERED: MAGNESIUM HYDROXIDE SUSP 30 ML UDCUP PO PRN (20:53)
[2018-01-28] MEDS ORDERED: ZOLPIDEM TARTRATE 5 MG TABLET PO PRN (20:53)
[2018-01-28] MEDS ORDERED: ACETAMINOPHEN 325 MG TABLET PO PRN (20:53)
[2018-01-28] MEDS ORDERED: PROMETHAZINE HCL INJ 25 MG/1 ML VIAL IV PRN (20:53)
[2018-01-28] MEDS ORDERED: NA PHOS,M-B/NA PHOS,DI-BA (ADULT) 133 ML ENEMA PR PRN (20:53)
[2018-01-28] MEDS ORDERED: DIBUCAINE 1% OINTMENT 28 GM TP PRN (20:53)
[2018-01-28] MEDS ORDERED: PROMETHAZINE HCL 25 MG SUPP.RECT PR PRN (20:53)
[2018-01-28] MEDS ORDERED: PSEUDOEPHEDRINE HCL 30 MG TABLET PO PRN (20:53)
[2018-01-28] MEDS ORDERED: ACETAMINOPHEN WITH CODEINE #3 TABLET PO PRN ×2 (20:53)
[2018-01-28] MEDS ORDERED: GLYCERIN/WITCH HAZEL LEAF 1 EACH MED..PAD TP PRN (20:53)
[2018-01-28] MEDS ORDERED: DIPHENHYDRAMINE HCL 25 MG CAPSULE PO PRN (20:53)
[2018-01-28] MEDS ORDERED: DIPH/PERTUSS(ACELL)/TETANUS VAC/PF 0.5 ML SYR (>=10YO) IM PRN (20:53)
[2018-01-28] MEDS ORDERED: PROMETHAZINE HCL 25 MG TABLET PO PRN (20:53)
[2018-01-28] MEDS ORDERED: BENZOCAINE/MENTHOL AEROSOL SPRAY 56 ML TOP PRN (20:53)
--- NOTE | 2018-01-28 21:40 | PDOC CONSULTATION ---
Consultation Consult Date: 01/28/18 Attending physician:: YARIEL MOONEY Consult reason:: Management of insulin-dependent diabetes mellitus History of Present Illness Admission Date/PCP: 01/27/18 14:12 ALEE HUNT DO Patient complains of: History of Present Illness: MORGAN ADAME is a 22 year old female with medical history remarkable for diabetes mellitus type 1 diagnosed when she was 8 years old, comes to the hospital with preeclampsia, was induced and delivered today. I discussed the case over the phone with Dr. Mooney from the [employer] department and the patient has been on insulin infusion since her induction for delivery as per their protocol, her healthcare management Dr. Reyes has been called and he recommended to keep the patient on the insulin infusion 24-36 hours post . Patient is usually on insulin pump at home and has been on this for the last 7 years. Patient has only 1 episode of DKA when she was 10 years old. Currently her blood sugar has been in between the 140s to the 200s and the rate has been adjusted. Patient is feeling very weak as she has delivered and still feels contractions , other than that she has no complaints. Past Medical History Endocrine Medical History: Reports: Diabetes Mellitus Type 1, Hypothyroidism Renal/ Medical History: Reports: Other Past Surgical History Past Surgical History: Reports: Tonsillectomy Social History Lives with: Family Smoking Status: Never Smoker Family History Family History: Reviewed & Not Pertinent Parental Family History Reviewed: Yes Children Family History Reviewed: Yes Sibling(s) Family History Reviewed.: Yes Medication/Allergy Home Medications: Cholecalciferol (Vitamin D3) [Vitamin D3 5000 unit Capsule] 5,000 unit PO DAILY 01/16/18 Insulin Aspart [Novolog Insulin 100 Unit/1 ml 10 ml] 87 unit SQ PRN PRN Levothyroxine Sodium 175 mcg PO DAILY 01/16/18 No122/Iron/Folic Acid [ Multi Tablet] 1 each PO DAILY 01/16/18 Allergies/Adverse Reactions: amoxicillin Allergy (Verified 04/20/17 12:06) Review of Systems Review of Systems: As outlined in the HPI, all others negative Physical Exam Vital Signs: Blood pressure 154/84, heart rate 100, temperature 99.7, respiratory rate 14 Intake & Output 01/27/18 01/28/18 01/29/18 06:59 06:59 06:59 Intake Total 11 34 Balance 11 34 Weight 82.1 kg Additional comments: General appearance: Well-developed, well-nourished, alert and cooperative, and appears to be in no acute distress Head: Normocephalic Eyes: PEERL, EOMI, vision is grossly intact. Ears: External auditory canal and tympanic membranes clear, hearing grossly intact. Nose: No nasal discharge. Throat: Oral cavity and pharynx normal. No inflammation, swelling, exudate or lesions. Neck: Neck supple, nontender without lymphadenopathy, masses or thyromegaly. Cardiac: Normal S1 and S2. No S3, S4 or murmurs. Rhythm is regular. There is no cyanosis or pallor. Extremities are warm and well perfused. Capillary refill is less than 2 seconds. No carotid bruits. Lungs: Clear to auscultation and percussion without rales, rhonchi, wheezing or diminished breath sounds. Not using accessory muscles. Abdomen: Not evaluated as just delivered Extremities: No significant deformity or joint abnormality. 4+ pitting edema in lower extremities. Peripheral pulses intact. No varicosities. Neurological: Cranial nerves II through XII grossly intact. Strength and sensation symmetric and intact throughout. Reflexes 2+ throughout. Skin: Skin normal color, texture and turgor with no lesions or eruptions, warm and dry. Psychiatric: The mental examination revealed the patient was oriented to person , place, and time. The patient was able to demonstrate good judgment on recent , without hallucinations, abnormal affect or abnormal behaviors. Results Laboratory Results: 01/28/18 11:12 01/28/18 11:12 01/28/18 01/28/18 01/28/18 11:12 11:12 13:55 WBC 11.4 H RBC 3.87 Hgb 11.6 L Hct 33.4 L MCV 86 MCH 30.0 MCHC 34.8 RDW 12.8 Plt Count 279 Seg Neutrophils % 81.6 H Lymphocytes % 11.9 L Monocytes % 6.1 Eosinophils % 0.2 Basophils % 0.2 Absolute Neutrophils 9.3 H Absolute Lymphocytes 1.3 Absolute Monocytes 0.7 Absolute Eosinophils 0.0 Absolute Basophils 0.0 Sodium 136.8 L Potassium 3.9 Chloride 108 H Carbon Dioxide 20 L Anion Gap 9 BUN 18 Creatinine 0.95 Est GFR ( Amer) > 60 Est GFR (Non-Af Amer) > 60 Glucose 92 Uric Acid 7.0 H Calcium 8.3 L Total Bilirubin 0.6 AST 31 ALT 24 Alkaline Phosphatase 114 Total Protein 5.7 L Albumin 2.6 L Blood Type O POSITIVE Antibody Screen NEGATIVE Assessment & Plan - Diagnosis (1) Diabetes 1.5, managed as type 1 Is this a current diagnosis for this admission?: Yes Plan: Patient is diabetes mellitus type 1 on insulin pump at home for the last 7 years , very well controlled, hemoglobin A1c is currently 7.4. As per her healthcare management recommendation she is going to be on insulin drip for the next 24-36 hours after deliver, we are going to help with an adequate blood sugar monitoring. After this period of time patient has to be placed back on her insulin pump. Patient is on D5 half NS to avoid hypoglycemia while in the insulin infusion, continue with Accu-Cheks q. one hour, patient already on hypoglycemia protocol. (2) Hypothyroid Qualifiers: Hypothyroidism type: unspecified Qualified Code(s): E03.9 - Hypothyroidism , unspecified Is this a current diagnosis for this admission?: Yes Plan: Continue home medications. (3) Qualifiers: Weeks of gestation: 35 weeks Qualified Code(s): Z3A.35 - 35 weeks gestation of Is this a current diagnosis for this admission?: Yes Plan: Patient delivered today, as per OB (4) Pre-eclampsia Qualifiers: Trimester: third trimester Qualified Code(s): O14.93 - Unspecified pre- eclampsia, third trimester Is this a current diagnosis for this admission?: Yes Plan: Patient has been having very high blood pressure since last week, never placed on antihypertensive medications, currently is 154/84 after delivery. This is been managed by OB. - Time Time Spent: 50 to 70 Minutes
[2018-01-28] MEDS ORDERED: ACETAMINOPHEN WITH CODEINE #3 TABLET ONE (22:46)
--- NOTE | 2018-01-29 04:54 | Delivery Summary ---
Del Sum A-C Datetime Report Generated by CPN: 01/29/2018 04:54 DELIVERY PERSONNEL DELIVERY PERSONNEL: [id number] Delivery Doctor:: Jenna Mendez MD Labor and Delivery Nurse:: Meredith Sheridan RNautomatic chief Nurse:: Ciera Benavidez RN Nursery Nurse:: Aye Cosme RN Nursery Nurse:: Isabelle Castro RN Car Body Designer/ARCHEOLOGIST CLASSICAL: Katie Silva, ST Additional Personnel: : Ene Hyman RN/ Sameera Camp, RN MATERNAL INFORMATION Delivery Anesthesia: Epidural Medications After Delivery: Pitocin Bolus-Please Comment Meds After Delivery Comment: Pitocin 20 units in 1000 ml 500ml bolus then 75ml/hr Estimated Blood Loss (ml): 100 Maternal Complications: Other Complication Details: IDDM, Preeclampsia, Provider Comments: VFI delivered in JYOTI presentation. Loose nuchal cord easily reduced. Shoulders and body delivered without difficulty. Cord doubly clamped and cut and to [place] for NICU personel due to ega and maternal comorbidities. FF at U. 1st degree laceration repaired with good hemostasis. Good hemostasis. Mother stable and baby to NICU. LABOR SUMMARY EDC: 03/03/2018 00:00 No. Babies in Womb: 1 Attempted: No Labor Anesthesia: Epidural LABOR INFORMATION Reason for Induction: Pre-Eclampsia Onset of Labor: 01/28/2018 14:30 Complete Dilatation: 01/28/2018 15:20 Cervical Ripening Agents: Cervidil (Annotations: Removed.) Oxytocin: Augmentation Group B Beta Strep: unknown Antibiotics # of Doses: 1 Antibiotics Time of Last Dose: 0900 Name of Antibiotic Given: Clindamycin Steroids Given: None Reason Steroids Not Administered: Not Applicable MEMBRANES Membranes Rupture Method: Spontaneous Rupture of Membranes: 01/28/2018 06:30 Length of Rupture (hr): 11.78 Amniotic Fluid Color: Clear Amniotic Fluid Amount: Scant Amniotic Fluid Odor: Normal STAGES OF LABOR Stage 1 hr: 0 Stage 1 min: 50 Stage 2 hr: 2 Stage 2 min: 57 Stage 3 hr: 0 Stage 3 min: 3 Total Time in Labor hr: 3 Total Time in Labor min: 50 VAGINAL DELIVERY Episiotomy: None Laceration #1: Perineal Laceration Extension #1: First Degree Laceration Repair: Yes Sponge Count Correct: Yes Sharps Count Correct: Yes CSECTION DELIVERY Primary Indication: N/A Secondary Indication: N/A CSection Incidence: N/A Labor: N/A Elective: N/A CSection Incision: N/A BABY A INFORMATION Infant Delivery Date/Time: 01/28/2018 18:17 Method of Delivery: Vaginal Born in Route : No : N/A Forceps: N/A Vacuum Extraction: N/A Shoulder Dystocia : No PRESENTATION/POSITION BABY A Presentation: Cephalic Cephalic Presentation: Vertex Vertex Position: Right Occipital Anterior Breech Presentation: N/A PLACENTA INFORMATION BABY A Placenta Delivery Time : 01/28/2018 18:20 Placenta Method of Delivery: Spontaneous Placenta Status: Delivered SCORES BABY A Heart Rate 1 min: >100 bpm Resp Effort 1 min: Absent Reflex Irritability 1 min: No Response Muscle Tone 1 min: Flaccid Color 1 min: Body [place], Extremities Blue Resuscitation Effort 1 min: Tactile Stimulation; Oxygen; PPV/NCPAP SCORE 1 MIN: 3 Heart Rate 5 min: >100 bpm Resp Effort 5 min: Slow, Irregular Reflex Irritability 5 min: [place] Muscle Tone 5 min: Some Flexion of Extremities Color 5 min: Body [place], Extremities Blue Resuscitation Effort 5 min: Tactile Stimulation; Oxygen; PPV/NCPAP SCORE 5 MIN: 6 Heart Rate 10 min: >100 bpm Resp Effort 10 min: [place] Reflex Irritability 10 min: [place] Muscle Tone 10 min: Some Flexion of Extremities Color 10 min: Body [place], Extremities Blue Resuscitation Effort 10 min: Tactile Stimulation; Oxygen; PPV/NCPAP SCORE 10 MIN: 7 INFANT INFORMATION BABY A Gestational Age at Delivery: 35.1 Gestational Status: Late - 34- 36.6 Weeks Outcome : Liveborn Infant Condition : Critical Sex: Female IDENTIFICATION BABY A Verification Date/Time: 01/28/2018 18:45 ID Band Number: [id number] Mother's Name Verified: Yes RN Verifying : MichelleTreySheridan, RN Additional Verifying Personnel: Henry Benavidez, RN WEIGHT/LENGTH BABY A Birthweight (gm): 3160 Infant Weight (lb): 6 Infant Weight (oz): 15 Length (in): 20.50 Infant Length (cm): 52.07 CORD INFORMATION BABY A No. Cord Vessels: 3 Nuchal Cord : Around Neck x1, Loose Cord Blood Taken: Yes-For Eval (Mom's Blood Type - or O+) Infant Suction: Mouth; Nose ASSESSMENT BABY A Infant Complications: Meconium Physical Findings at Delivery: Caput Succedaneum; Molding of the Head; Bruising Respirations: Grunting Skin to Skin: No Weight And Balance Control Agent/ALS Called : Yes Care By: Michael Cosme RN Transferred To: NICU RESUSCITATION BABY A Resuscitation Effort: Tactile Stimulation; Oxygen; PPV/NCPAP IV Fluid: Normal Saline (Annotations: Heparinized Normal Saline 1:1) IV Fluid Amount: 32 (Annotations: Bolus of NS ) Access Line(s) Inserted: Umbilical Venous Line BABY B INFORMATION : N/A SIGNATURES Signature: with User ID: [email or web address]
[2018-01-29] MEDS ORDERED: ACETAMINOPHEN WITH CODEINE #3 TABLET ONE (06:36)
--- NOTE | 2018-01-29 07:44 | L&D Progress Notes ---
PROGRESS NOTES Datetime Report Generated by SEBASTIÁN: 01/29/2018 07:44 PROGRESS NOTE Impression: Eclampsia - Mild Plan: Continue Present Management Informed Consent Obtained: Risks, Benefits and Alternatives Discussed Vital Signs : Reviewed Comment: IDDM with on pump - pump stopped since patient was being induced. Her Ela Teacher has recommended that she continue with Insulin drip for at least 16 horus after delivery of the placenta. (up to 48 hours). She recommended titrating up from basal rate of 1.4. Now she is on 2.5 units per hour. She is on a carb 4 pattern diet. Once blood sugars and insulin requirements have stablilized Dr. Reyes recommend the following pump setting. Basal for day time 1.4 and 1.1 nighttime. Carb ratios night 10 and day 9, Targets night 130 and day 110. SHe has outlined the pump setting in a letter which is placed in the progress notes. Her contact info is in there as well for any questions. We appreciate Hospitalist assistance with this patient and her insulin drip and IDDM. THank you. With regards to preE - her BPs have been elevated over the last week leading to dx of PreE and outpatient oral antihypertensives were not initiated since that does not impact preE. Instead she was admitted and delivery initiated due to severe range BPs and need for IV antihypertensives. BPs have been improved since Magnesium has been initiated and diuresis has occurred with now UOP since delivery 3450ml. Would continue magnesium until 24 hours and keep patient on labor and delivery for higher level of care. She will very likely need antihypertensives after magnesium discontinued. Patient doing well. If continues to be stable today may be able to go to the NICU to visit baby today in a wheelchair. LAST VAGINAL EXAM-NURSING Dilitation: 10.0 Dilitation: 10.0 Dilitation: 9.5 Dilitation: 6.5 Dilitation: 1-2 Dilitation: 1.0 Effacement: 100 Effacement: 90 Effacement: 25 Station: 1 Station: 0 Station: -1 Station: -3 Contractions: Uterine Irritability noted. Contractions: Uterine Irritability noted. Contractions: UTerine Irritability noted. Contractions: Patient denies feeling contractions. Uterine Irritability noted. SIGNATURE SIGNATURE: [id number];10,[id number];15,[id number] SIGNATURE: [id number];10,[id number];14,[id number] SIGNATURE: [id number];10,[id number] Signature: Electronically signed by Jenna Mendez MD ([facility]) on 01/29/2018 at 07:43 with User ID: [email or web address]
[2018-01-29] MEDS: INSULIN, REGULAR 100 UNIT/100 ML NORMAL SALINE IV PRN ×2 (08:17)
[2018-01-29] MEDS ORDERED: VALACYCLOVIR HCL 500 MG TABLET ONE ×2 (08:25)
[2018-01-29] MEDS ORDERED: IBUPROFEN 800 MG TABLET ONE (08:25)
[2018-01-29] MEDS: IBUPROFEN 800 MG TABLET PO SCH ×3 (08:28→21:11)
[2018-01-29] MEDS: VALACYCLOVIR HCL 500 MG TABLET PO SCH ×3 (08:29→22:13)
[2018-01-29 08:31] LABS: HEMOGLOBIN 11.7 g/dL (12.0-15.5); MEAN CORPUSCULAR HEMOGLOBIN 30.1 pg (27.0-33.4); MEAN CORPUSCULAR HGB CONC 34.5 g/dL (32.0-36.0); MEAN CORPUSCULAR VOLUME 87 fl (80-97); PLATELET COUNT 307 10^3/uL (150-450); WHITE BLOOD COUNT 13.3 10^3/uL (4.0-10.5)
[2018-01-29] MEDS ORDERED: SENNOSIDES/DOCUSATE 8.6-50 MG 1 EACH TABLET PO SCH (10:00)
[2018-01-29] MEDS ORDERED: DOCUSATE SODIUM 100 MG CAPSULE PO SCH (10:00)
[2018-01-29] MEDS ORDERED: PRENATAL VITAMIN W DHA CAPSULE PO SCH (10:00)
[2018-01-29] MEDS ORDERED: FERROUS SULFATE 325 MG TABLET PO SCH (10:00)
[2018-01-29] MEDS ORDERED: NIFEDIPINE 30 MG TAB.ER.24 PO ONE ×2 (16:52→16:53)
[2018-01-29] MEDS ORDERED: MEASLES,MUMPS&RUBELLA VACC/PF 0.5 ML VIAL SUBCUT PRN (17:04)
[2018-01-29] MEDS ORDERED: BENZOCAINE/MENTHOL AEROSOL SPRAY 56 ML TOP PRN (17:04)
[2018-01-29] MEDS ORDERED: DIBUCAINE 1% OINTMENT 28 GM TP PRN (17:04)
[2018-01-29] MEDS ORDERED: ZOLPIDEM TARTRATE 5 MG TABLET PO PRN (17:04)
[2018-01-29] MEDS ORDERED: ACETAMINOPHEN WITH CODEINE #3 TABLET PO PRN ×2 (17:04)
[2018-01-29] MEDS ORDERED: DIPH/PERTUSS(ACELL)/TETANUS VAC/PF 0.5 ML SYR (>=10YO) IM PRN (17:04)
[2018-01-29] MEDS: CLINDAMYCIN 900 MG/D5W RTU 900 MG/50 ML RTUPB IV SCH (17:23)
[2018-01-29] MEDS: FAMOTIDINE 20 MG TABLET PO SCH ×3 (17:24→21:11)
[2018-01-29] MEDS: DOCUSATE SODIUM 100 MG CAPSULE PO SCH (19:17)
[2018-01-29] MEDS: FERROUS SULFATE 325 MG TABLET PO SCH (19:17)
--- NOTE | 2018-01-29 20:31 | PROGRESS NOTE E ---
Progress Note NAME: MORGAN ADAME : 1995 AGE: 22Y DATE: 01/29/2018 ROOM: LR200 SUBJECTIVE: The patient is currently lying in bed. She states that she feels okay today. The patient denies any nausea, vomiting, diarrhea. No shortness of breath, dizziness, or chest pain. The patient is . I did discuss insulin regimen with the patient and according to her drywall stripper's recommendations the patient is agreeable to this. The patient will go on her insulin pump at 1800 hours tonight which will be greater than 24 hours . The patient understands these instructions and can program her pump accordingly. The patient has been afebrile, her blood pressures have been in the good range, and the patient does not voice any other concerns at this time. REVIEW OF SYSTEMS: The rest of the review of systems negative. MEDICATIONS: Have been reviewed. OBJECTIVE: GENERAL: The patient is a 22-year-old who is awake, alert, and oriented to person, time, place, situation. She is verbal, conversational. She does not appear to be in any acute distress. VITAL SIGNS: Temperature is 99, pulse 90, respirations 14, blood pressure is 150/80. HEENT: The patient's face is puffy, but pupils are reactive. CHEST: Clear, unlabored. ABDOMEN: . EXTREMITIES: Minimal edema. PSYCHIATRIC: Appropriate affect, pleasant mood. DIAGNOSTICS: Lab values are as follows - Hematology obtained on 01/29/2018; WBC 13.3, hemoglobin 11.7, hematocrit 34.0, platelet count is 307,000. Chemistry obtained on 01/28/2018; sodium is 136, potassium 3.9, chloride is 108, carbon dioxide 20, BUN 18, creatinine is 0.59, glucose 92, calcium is 8.3, bilirubin 0.6, AST 31, ALT 24, alk-phos 114. LDH is 180. Total protein is 5.7, albumin 2.6. IMPRESSION AND PLAN: 1. DIABETES MELLITUS TYPE 1. Recommendations by her drywall stripper, Dr. Reyes, are on the chart. Recommendation is the following; basal for the daytime is 1.4 and 1.1 at night, carb ratio at night is 10 and day is 9, target is 130 at night and days are 110. There is a written document in the progress note for this. 2. HYPERTENSION. Blood pressure has been in a more acceptable range. 3. HYPOTHYROIDISM. Will continue home medications. 4. PREECLAMPSIA. Resolved with delivery. 5. MANAGEMENT. As per the primary OB team. CODE STATUS: The patient is a full code. DISPOSITION: Depending on the patient's symptomatology and diagnostic findings will reevaluate in the a.m. TIME SPENT: On this follow up, including assessment and plan, physical examination, patient education, review of records is 25 minutes. DICTATING PHYSICIAN: HOWIE MCNAMARA NP [id number] PHY#: [id number] ID: [id number] JOB#: [id number] ACCT: [id number] cc: >
[2018-01-30] MEDS: IBUPROFEN 800 MG TABLET PO SCH ×3 (05:07→22:01)
[2018-01-30] MEDS: PRENATAL VITAMIN W DHA CAPSULE PO SCH (09:44)
[2018-01-30] MEDS: SENNOSIDES/DOCUSATE 8.6-50 MG 1 EACH TABLET PO SCH (09:44)
[2018-01-30] MEDS: FAMOTIDINE 20 MG TABLET PO SCH ×2 (09:46→22:01)
[2018-01-30] MEDS: VALACYCLOVIR HCL 500 MG TABLET PO SCH ×2 (09:46→22:01)
[2018-01-30] MEDS ORDERED: (PENDING PHARMACY ID) (Levothyroxine Sodium [Levothyroxine Sodium] 175 MCG) PO SCH (10:00)
--- NOTE | 2018-01-30 10:48 | PDOC DISCHARGE SUMMARY ---
Final Diagnosis Discharge Date: 01/30/18 - Final Diagnosis (1) Obstetrical laceration, first degree Is this a current diagnosis for this admission?: Yes (2) Diabetes 1.5, managed as type 1 Is this a current diagnosis for this admission?: Yes (4) Pre-eclampsia Is this a current diagnosis for this admission?: Yes (5) Vaginal delivery Is this a current diagnosis for this admission?: Yes Discharge Data - Discharge Medication Prescriptions: Ibuprofen [Motrin 800 mg Tablet] 800 mg PO Q8HP PRN #60 tablet PRN Reason: Levothyroxine Sodium 150 mcg PO DAILY #30 tablet Nifedipine [Procardia XL 30 mg Tablet] 30 mg PO DAILY #30 tab.er.24 Home Medications: Cholecalciferol (Vitamin D3) [Vitamin D3 5000 unit Capsule] 5,000 unit PO DAILY 01/16/18 Insulin Aspart [Novolog Insulin (Aspart) 100 unit/mL] 87 unit SQ PRN PRN No122/Iron/Folic Acid [ Multi Tablet] 1 each PO DAILY 01/16/18 Ibuprofen [Motrin 800 mg Tablet] 800 mg PO Q8HP PRN #60 tablet 01/30/18 Levothyroxine Sodium 150 mcg PO DAILY #30 tablet 01/30/18 Nifedipine [Procardia XL 30 mg Tablet] 30 mg PO DAILY #30 tab.er.24 01/30/18 Reason(s) for Admission: Induction of Labor Procedures: NST Intrapartum Procedure(s): Spontaneous Vaginal Delivery Laceration-Degree: 1st - Diagnosis Test Laboratory: Temp Pulse Resp BP Pulse Ox 98.3 F 93 18 145/81 H 98 01/30/18 07:35 01/30/18 07:35 01/30/18 07:35 01/30/18 07:35 01/30/18 07:35 01/27/18 01/27/18 01/28/18 13:09 13:55 11:12 RBC 3.90 3.87 Hgb 11.9 L 11.6 L Hct 33.6 L 33.4 L Urine Opiates Screen NEGATIVE 01/29/18 08:18 RBC 3.90 Hgb 11.7 L Hct 34.0 L Urine Opiates Screen - Discharge information/Instructions Discharge Activity: Balance Activity w/Rest, Pelvic Rest Discharge Diet: Regular Disposition: HOME, SELF-CARE Follow up with: [facility] in: 1, Weeks
[2018-01-30] MEDS ORDERED: LEVOTHYROXINE SODIUM 0.1 MG TABLET PO SCH (11:00)
[2018-01-30] MEDS ORDERED: LEVOTHYROXINE SODIUM 0.075 MG TABLET PO SCH (11:00)
--- NOTE | 2018-01-30 16:17 | PROGRESS NOTE E ---
Progress Note NAME: MORGAN ADAME : 1995 AGE: 22Y DATE: 01/30/2018 ROOM: 218 SUBJECTIVE: The patient is currently lying in bed. The patient was seen this morning on rounds. She states that her blood sugars have been good overnight, citing that when she first moved over to the pump, she spiked up to 400, but has come down to less than 110 and has remained there. The patient does not voice any other concerns at this time. REVIEW OF SYSTEMS: The rest of the review of systems is negative. MEDICATIONS: Medications were reviewed. OBJECTIVE: GENERAL: The patient is a 22-year-old female who is awake, alert, and oriented to person, place, time, and situation. She is verbal and conversational. Does not appear to be in distress. VITAL SIGNS: Temperature 98.3, pulse 93, respirations 18, blood pressure 145/81, oxygen saturation 98% on room air. SKIN: Warm and dry, no rashes, not diaphoretic. HEENT: Pupils are reactive. Edema has improved. CHEST: Symmetrical, unlabored. ABDOMEN: . EXTREMITIES: No edema. PSYCHIATRIC: Appropriate affect, pleasant mood. DIAGNOSTICS/LAB VALUES: Hematology obtained on 01/29/2018: WBC 10, hemoglobin 11.7, hematocrit 30.40, platelet count 307,000. Chemistry obtained on 01/29/2018: Glucose 250, 173, and 143 respectively. ASSESSMENT AND PLAN: 1. DIABETES MELLITUS TYPE 1. Recommendations per youth director Dr. Reyes, which are on the chart. The patient appears to be at her baseline again. 2. HYPERTENSION. Blood pressure has been in more acceptable range. 3. HYPOTHYROIDISM. Will continue her medication. 4. PREECLAMPSIA. Resolved with delivery. 5. MANAGEMENT. As per primary OB team. DISPOSITION: The patient is a full code. The patient can be discharged from a hospitalist perspective regarding her diabetes as well as hypertension. Will sign off on the case at this time. Time spent on this followup, including assessment, plan, physical examination, patient education, review of records, and specialty collaboration, is 15 minutes. DICTATING PHYSICIAN: HOWIE MCNAMARA NP [id number] PHY#: [id number] ID: [id number] JOB#: [id number] ACCT: [id number] cc: > MTDD
[2018-01-30] MEDS: FERROUS SULFATE 325 MG TABLET PO SCH (18:24)
[2018-01-30] MEDS: DOCUSATE SODIUM 100 MG CAPSULE PO SCH (18:25)
[2018-01-31] MEDS: IBUPROFEN 800 MG TABLET PO SCH (06:18)
[2018-01-31] MEDS: VALACYCLOVIR HCL 500 MG TABLET PO SCH (09:57)
[2018-01-31] MEDS: FAMOTIDINE 20 MG TABLET PO SCH (09:57)
[2018-01-31] MEDS: FERROUS SULFATE 325 MG TABLET PO SCH (09:57)
[2018-01-31] MEDS: DOCUSATE SODIUM 100 MG CAPSULE PO SCH (09:58)
[2018-01-31] MEDS: PRENATAL VITAMIN W DHA CAPSULE PO SCH (09:58)
[2018-01-31] MEDS: SENNOSIDES/DOCUSATE 8.6-50 MG 1 EACH TABLET PO SCH (09:59)
[2018-01-31] MEDS ORDERED: NIFEDIPINE 30 MG TAB.ER.24 PO SCH (10:00)
--- NOTE | 2018-01-31 10:04 | PDOC PROGRESS REPORT ---
Subjective-OB Progress Note for:: 01/31/18 Subjective: Ready for discharge. Was discharged yesterday but was held over to watch b/p. Physical Exam (OB) Vital Signs: Temp Pulse Resp BP Pulse Ox 98.1 F 80 18 133/89 H 98 01/31/18 03:08 01/31/18 03:08 01/31/18 03:08 01/31/18 03:08 01/31/18 03:08 Intake & Output 01/30/18 01/31/18 02/01/18 06:59 06:59 06:59 Intake Total 545 500 Balance 545 500 - PIH/Pre-Eclampsia DTR's: 2 + Clonus: Negative Headache: Absent Epigastric Pain: No Visual Changes: Yes - Lochia Lochia Amount: Scant < 10 ml Lochia Color: Rubra/Red - Abdomen Description: Tender, Soft, Round Hernia Present: No Bowel Sounds: Normoactive Flatus Presence: Present Stool: Yes Fundal Description: Firm, Midline Fundal Height: u/u - u/2 Objective-Diagnostic Laboratory: 01/29/18 08:18 01/28/18 11:12 Assessment and Plan(PN) - Time Spent with Patient Medications reviewed and adjusted accordingly: Yes - Disposition Anticipated Discharge: Home
[2018-01-31 11:42] VITALS: BP 145/81
== END 2018-01-31 13:37 | disposition home or self-care (01) | DRG 806 ==
LOC: LC 13:02 → LR 14:12 → 2S 01-29 18:30 → UNDODISIN 01-30 14:33
PROVIDERS: ADMIT Student in an Organized Health Care Education/Training Program; ATTEND Student in an Organized Health Care Education/Training Program
PROC: 10E0XZZ Delivery of Products of Conception, External Approach (ICD-10-PCS; principal; 2018-01-28)
PROC: 0HQ9XZZ Repair Perineum Skin, External Approach (ICD-10-PCS; 2018-01-28)
DX: O14.94 Unspecified pre-eclampsia, complicating childbirth (principal); O98.52 Other viral diseases complicating childbirth; Z37.0 Single live birth; O60.14X0 Preterm labor third trimester with preterm delivery third trimester, not applicable or unspecified; O24.02 Pre-existing type 1 diabetes mellitus, in childbirth; E10.9 Type 1 diabetes mellitus without complications; O99.284 Endocrine, nutritional and metabolic diseases complicating childbirth; E03.9 Hypothyroidism, unspecified; O69.81X0 Labor and delivery complicated by cord around neck, without compression, not applicable or unspecified; O70.0 First degree perineal laceration during delivery; O77.0 Labor and delivery complicated by meconium in amniotic fluid; B00.9 Herpesviral infection, unspecified; Z3A.35 35 weeks gestation of pregnancy
CPT/HCPCS: 36415; 80053; 80307; 81001; 82962; 83036; 83615; 83735; 84112; 84550; 85025; 85027; 86592; 86695; 86850; 86900; 86901; 87077; 87081; 88307; 94760; C1726; J0360; J1815; J1940; J2300; J2370; J2550; J2590; J2765; J3010; J3475; J3490; S0028; S0183

== ENCOUNTER 2018-08-27 11:12 | Emergency (ER) | payer MEDICAID ==
[2018-08-27] MEDS ORDERED: PROCHLORPERAZINE EDISYLATE INJ 10 MG/2 ML VIAL IV ONE (11:36)
[2018-08-27] MEDS ORDERED: DIPHENHYDRAMINE HCL 50 MG/ML VIAL IV ONE (11:36)
[2018-08-27] MEDS ORDERED: RINGERS SOLUTION,LACTATED 1,000 ML IV ONE (11:36)
--- NOTE | 2018-08-27 11:44 | ER Document Report ---
ED Medical Screen (RME) - General Chief Complaint: Nausea/Vomiting/Diarrhea Stated Complaint: VOMITING Time Seen by Provider: 08/27/18 11:36 Primary Care Provider: ALEE JONES DO [Primary Care Provider] - Follow up as needed Information source: Patient Notes: Patient presents complaining of nausea vomiting diarrhea that started today at 830. Patient also complains of headache behind bilateral eyes. Patient reports vomiting 30 times today and had diarrhea x2. Patient denies any fever. Patient reports blood sugar was in the 100s. Patient is an insulin-dependent diabetic. I have greeted and performed a rapid initial assessment of this patient. A comprehensive ED assessment and evaluation of the patient, analysis of test results and completion of the medical decision making process will be conducted by additional ED providers. TRAVEL OUTSIDE OF THE [place] IN LAST 30 DAYS: No - Related Data Allergies/Adverse Reactions: amoxicillin Allergy (Verified 08/27/18 11:14) Past Medical History - Social History Chew tobacco use (# tins/day): No Frequency of alcohol use: None Drug Abuse: None Family history: Reviewed & Not Pertinent Endocrine Medical History: Reports: Hx Diabetes Mellitus Type 1, Hx Hypothyroidism Renal/ Medical History: Denies: Hx Peritoneal Dialysis Past Surgical History: Reports: Hx Tonsillectomy Physical Exam - Vital signs Vitals: Temp Pulse Resp BP Pulse Ox 97.9 F 81 18 111/73 100 08/27/18 11:26 08/27/18 11:08/27/18 11:08/27/18 11:08/27/18 11:26 - Neurological Neuro grossly intact: Yes Cognition: Normal [place] Coma Scale Eye Opening: Spontaneous [place] Coma Scale Verbal: Oriented [place] Coma Scale Motor: Obeys Commands [place] Coma Scale Total: 15 Course - Vital Signs Vital signs: Temp Pulse Resp BP Pulse Ox 97.9 F 81 18 111/73 100 08/27/18 11:26 08/27/18 11:26 08/27/18 11:08/27/18 11:08/27/18 11:26 Doctor's Discharge - Discharge Referrals: ALEE JONES DO [Primary Care Provider] - Follow up as needed
[2018-08-27 12:05] LABS: ABSOLUTE LYMPHOCYTES (AUTO) 1.1 10^3/uL (0.5-4.7); ABSOLUTE MONOCYTES (AUTO) 0.2 10^3/uL (0.1-1.4); ABSOLUTE NEUT (AUTO) 5.6 10^3/uL (1.7-8.2); BASOPHILS % (AUTO) 0.4 % (0-2); EOSINOPHILS % (AUTO) 0.2 % (0-6); HEMOGLOBIN 14.7 g/dL (12.0-15.5); LYMPHOCYTES % (AUTO) 15.6 % (13-45); MEAN CORPUSCULAR HEMOGLOBIN 29.8 pg (27.0-33.4); MEAN CORPUSCULAR VOLUME 85 fl (80-97); MONOCYTES % (AUTO) 2.6 % (3-13); PLATELET COUNT 280 10^3/uL (150-450); RED BLOOD COUNT 4.94 10^6/uL (3.72-5.28); RED CELL DISTRIBUTION WIDTH 13.7 % (11.5-14.0); SEGMENTED NEUTROPHILS % (AUTO) 81.2 % (42-78); TOTAL CELLS COUNTED % (AUTO) 100 %; WHITE BLOOD COUNT 6.9 10^3/uL (4.0-10.5)
[2018-08-27 12:10] LABS: APPEARANCE,URINE SLIGHTLY-CLOUDY; BILIRUBIN,URINE NEGATIVE (NEGATIVE); COLOR,URINE YELLOW; GLUCOSE, URINE >=500 mg/dL (NEGATIVE); KETONES,URINE 80 mg/dL (NEGATIVE); LEUKOCYTE ESTERASE,URINE SMALL (NEGATIVE); NITRITE,URINE NEGATIVE (NEGATIVE); PROTEIN,URINE NEGATIVE (NEGATIVE); URINE SPECIFIC GRAVITY 1.023; UROBILINOGEN,URINE NEGATIVE mg/dL (<2.0)
[2018-08-27 12:16] LABS: VENOUS BLOOD BASE EXCESS -1.5 mmol/L; VENOUS BLOOD HCO3 25.5 mmol/L (20-32); VENOUS BLOOD PCO2 51.9 mmHg (35-63); VENOUS BLOOD PH 7.31 (7.30-7.42)
[2018-08-27 12:29] LABS: ALANINE AMINOTRANSFERASE 24 U/L (9-52); ALBUMIN 4.8 g/dL (3.5-5.0); ALKALINE PHOSPHATASE 134 U/L (38-126); ANION GAP 12 (5-19); ASPARTATE AMINO TRANSFERASE 27 U/L (14-36); BILIRUBIN,DIRECT 0.2 mg/dL (0.0-0.4); BILIRUBIN,TOTAL 1.8 mg/dL (0.2-1.3); BLOOD UREA NITROGEN 13 mg/dL (7-20); CALCIUM 9.7 mg/dL (8.4-10.2); CARBON DIOXIDE 24 mmol/L (22-30); CHLORIDE 103 mmol/L (98-107); GLUCOSE 220 mg/dL (75-110); LIPASE 32.7 U/L (23-300); SODIUM 138.7 mmol/L (137-145); TOTAL PROTEIN 8.3 g/dL (6.3-8.2)
--- NOTE | 2018-08-27 14:45 | ER Document Report ---
ED General - General Chief Complaint: Nausea/Vomiting/Diarrhea Stated Complaint: VOMITING Time Seen by Provider: 08/27/18 11:36 Primary Care Provider: ALEE JONES DO [ACTIVE STAFF] - Follow up as needed Notes: Patient is a 23-year-old female insulin-dependent diabetic presents to the emergency department with over 15 times of vomiting and 2 times of diarrhea started this morning. Patient is denying any blood in either emesis or stool. Patient states she also has a generalized migraine. States she took her blood sugar prior to arrival to the emergency room and it was 100. Patient's denying any fevers, dysuria, vaginal discharge. Patient is denying any abdominal pain. Patient is unsure of her last menstrual cycle TRAVEL OUTSIDE OF THE [place] IN LAST 30 DAYS: No - Related Data Allergies/Adverse Reactions: amoxicillin Allergy (Verified 08/27/18 11:14) Past Medical History - General Information source: Patient - Social History Smoking Status: Never Smoker Chew tobacco use (# tins/day): No Frequency of alcohol use: None Drug Abuse: None Family History: Reviewed & Not Pertinent Patient has suicidal ideation: No Patient has homicidal ideation: No Endocrine Medical History: Reports: Hx Diabetes Mellitus Type 1, Hx Hypothyroidism Renal/ Medical History: Denies: Hx Peritoneal Dialysis Past Surgical History: Reports: Hx Tonsillectomy Review of Systems - Review of Systems Constitutional: denies: Fever EENT: No symptoms reported Cardiovascular: No symptoms reported Respiratory: No symptoms reported Gastrointestinal: See HPI. denies: Abdominal pain Genitourinary: See HPI Female Genitourinary: See HPI Musculoskeletal: No symptoms reported Skin: No symptoms reported Hematologic/Lymphatic: No symptoms reported Neurological/Psychological: See HPI Physical Exam - Vital signs Vitals: Temp Pulse Resp BP Pulse Ox 97.9 F 81 18 111/73 100 08/27/18 11:26 08/27/18 11:26 08/27/18 11:26 08/27/18 11:26 08/27/18 11:26 - Notes Notes: GENERAL: Alert, interacts well. No acute distress. HEAD: Normocephalic, atraumatic. EYES: Pupils equal, round, and reactive to light. Extraocular movements intact. ENT: Oral mucosa moist, tongue midline. NECK: Full range of motion. Supple. Trachea midline. LUNGS: Clear to auscultation bilaterally, no wheezes, rales, or rhonchi. No respiratory distress. HEART: Regular rate and rhythm. No murmur ABDOMEN: Soft, non-tender. Non-distended. Bowel sounds present in all 4 quadrants. EXTREMITIES: Moves all 4 extremities spontaneously. No edema, normal radial and dorsalis pedis pulses bilaterally. No cyanosis. 5 out of 5 strength of her extremities BACK: no cervical, thoracic, lumbar midline tenderness. No saddle anesthesia, normal distal neurovascular exam. No CVA tenderness noted bilaterally NEUROLOGICAL: Alert and oriented x3. Normal speech. cranial nerves II through XII grossly intact PSYCH: Normal affect, normal mood. SKIN: Warm, dry, normal turgor. No rashes or lesions noted. Course - Re-evaluation Re-evalutation: 08/27/18 14:41 Patient is already been appropriately treated by [facility] provider for generalized vomiting and migraine headache. Upon my assessment patient states she "feels a whole lot better." Patient has had no further episodes of vomiting or diarrhea in the emergency room. Patient has been able to p.o. fluids without vomiting. Patient sugars are within normal limits. Discussed with her to keep a close vt tc on her sugars in the next 24 to 48 hours. Also discussed close follow-up with primary care provider. Patient stable for discharge. 08/27/18 14:44 Labs reveal no signs of DKA. Laboratory 08/27/18 08/27/18 08/27/18 11:40 11:40 11:40 WBC 6.9 RBC 4.94 Hgb 14.7 Hct 42.0 MCV 85 MCH 29.8 MCHC 35.0 RDW 13.7 Plt Count 280 Seg Neutrophils % 81.2 H Lymphocytes % 15.6 Monocytes % 2.6 L Eosinophils % 0.2 Basophils % 0.4 Absolute Neutrophils 5.6 Absolute Lymphocytes 1.1 Absolute Monocytes 0.2 Absolute Eosinophils 0.0 Absolute Basophils 0.0 VBG pH 7.31 VBG pCO2 51.9 VBG HCO3 25.5 VBG Base Excess -1.5 Sodium 138.7 Potassium 5.0 Chloride 103 Carbon Dioxide 24 Anion Gap 12 BUN 13 Creatinine 0.54 Est GFR ( Amer) > 60 Est GFR (Non-Af Amer) > 60 Glucose 220 H POC Glucose Calcium 9.7 Total Bilirubin 1.8 H Direct Bilirubin 0.2 Neonat Total Bilirubin Not Reportable Neonat Direct Bilirubin Not Reportable Neonat Indirect Bili Not Reportable AST 27 ALT 24 Alkaline Phosphatase 134 H Total Protein 8.3 H Albumin 4.8 Lipase 32.7 Serum HCG, Qual Urine Color Urine Appearance Urine pH Ur Specific [place] Urine Protein Urine Glucose (UA) Urine Ketones Urine Blood Urine Nitrite Urine Bilirubin Urine Urobilinogen Ur Leukocyte Esterase Urine WBC (Auto) Urine RBC (Auto) Squamous Epi Cells Auto Urine Mucus (Auto) Urine Ascorbic Acid 08/27/18 08/27/18 08/27/18 11:40 11:40 11:50 WBC RBC Hgb Hct MCV MCH MCHC RDW Plt Count Seg Neutrophils % Lymphocytes % Monocytes % Eosinophils % Basophils % Absolute Neutrophils Absolute Lymphocytes Absolute Monocytes Absolute Eosinophils Absolute Basophils VBG pH VBG pCO2 VBG HCO3 VBG Base Excess Sodium Potassium Chloride Carbon Dioxide Anion Gap BUN Creatinine Est GFR ( Amer) Est GFR (Non-Af Amer) Glucose POC Glucose 208 H Calcium Total Bilirubin Direct Bilirubin Neonat Total Bilirubin Neonat Direct Bilirubin Neonat Indirect Bili AST ALT Alkaline Phosphatase Total Protein Albumin Lipase Serum HCG, Qual NEGATIVE Urine Color YELLOW Urine Appearance SLIGHTLY-CLOUDY Urine pH 5.0 Ur Specific [place] 1.023 Urine Protein NEGATIVE Urine Glucose (UA) >=500 H Urine Ketones 80 H Urine Blood NEGATIVE Urine Nitrite NEGATIVE Urine Bilirubin NEGATIVE Urine Urobilinogen NEGATIVE Ur Leukocyte Esterase SMALL H Urine WBC (Auto) 7 Urine RBC (Auto) 2 Squamous Epi Cells Auto 7 Urine Mucus (Auto) OCC Urine Ascorbic Acid NEGATIVE - Vital Signs Vital signs: Temp Pulse Resp BP Pulse Ox 97.9 F 81 18 111/73 100 08/27/18 11:26 08/27/18 11:26 08/27/18 11:26 08/27/18 11:26 08/27/18 11:26 - Laboratory Result Diagrams: 08/27/18 11:40 08/27/18 11:40 Laboratory results interpreted by me: 08/27/18 08/27/18 08/27/18 11:40 11:40 11:40 Seg Neutrophils % 81.2 H Monocytes % 2.6 L Glucose 220 H POC Glucose Total Bilirubin 1.8 H Alkaline Phosphatase 134 H Total Protein 8.3 H Urine Glucose (UA) >=500 H Urine Ketones 80 H Ur Leukocyte Esterase SMALL H 08/27/18 11:50 Seg Neutrophils % Monocytes % Glucose POC Glucose 208 H Total Bilirubin Alkaline Phosphatase Total Protein Urine Glucose (UA) Urine Ketones Ur Leukocyte Esterase Discharge - Discharge Clinical Impression: Nausea vomiting and diarrhea Headache Qualifiers: Headache type: unspecified Headache chronicity pattern: unspecified pattern Intractability: not intractable Qualified Code(s): R51 - Headache Condition: Stable Disposition: HOME, SELF-CARE Instructions: Vomiting ([facility]), Intravenous (IV) Fluids ([facility]), Diarrhea, Nonspecific ([facility]), Antinausea Medication ([facility]), Migraine Headache ([facility]), Control of Diabetes During Illness ([facility]) Additional Instructions: You have been seen and treated in the emergency department for generalized nausea, vomiting, diarrhea, headache. All of your labs revealed no signs of abnormalities. Your last blood sugar was 202. Please make sure you are staying well-hydrated and keeping a close eye on your blood sugar levels in the next 24 to 48 hours. Please also make sure he follow-up with your primary care provider in the next 24 hours. Please return to the emergency room for any concerns. Prescriptions: Ondansetron [Zofran Odt 4 mg Tablet] 1 tab PO Q6 PRN #10 tab.rapdis PRN Reason: For Nausea/Vomiting Referrals: ALEE JONES DO [ACTIVE STAFF] - Follow up as needed
[2018-08-27 15:22] VITALS: BP 100/49
== END 2018-08-27 15:21 | disposition home or self-care (01) ==
LOC: ER 11:12
DX: R11.2 Nausea with vomiting, unspecified (principal); G43.909 Migraine, unspecified, not intractable, without status migrainosus; R19.7 Diarrhea, unspecified; E10.9 Type 1 diabetes mellitus without complications; Z88.0 Allergy status to penicillin
CPT/HCPCS: 99284; 96361; 96374; 96375; 36415; 87086; 82962; 83690; 84703; 85025; 87088; 80053; 81001; 82803; J1200; J0780; J7120

== ENCOUNTER 2018-09-28 10:06 | Emergency (ER) | payer MEDICAID ==
[2018-09-28] MEDS ORDERED: NORMAL SALINE 1000 ML 1,000 ML IV ONE (10:45)
[2018-09-28] MEDS ORDERED: DIPHENHYDRAMINE HCL 50 MG/ML VIAL IV ONE (10:46)
[2018-09-28] MEDS ORDERED: PROCHLORPERAZINE EDISYLATE INJ 10 MG/2 ML VIAL IV ONE ×2 (10:46→11:06)
[2018-09-28] MEDS ORDERED: METOCLOPRAMIDE HCL INJ/PF 10 MG/2 ML SDV IV ONE ×2 (10:46→11:06)
--- NOTE | 2018-09-28 10:51 | ER Document Report ---
ED Medical Screen (RME) - General Chief Complaint: Nausea/Vomiting Stated Complaint: VOMITING Time Seen by Provider: 09/28/18 10:34 Primary Care Provider: TESS AKINS FNP-C [Primary Care Provider] - Follow up as needed Notes: Patient is a 23-year-old female who presents the emergency department with a chief complaint of headache and vomiting. Patient states that she had this before a month ago and was treated with a migraine cocktail and her symptoms went away. Patient states that she has the same symptoms today. Patient has Kishor's thyroiditis and type 1 diabetes. She is taking her medications as prescribed. Denies any numbness, tingling, or weakness. Exam: Soft nontender abdomen. No neurological deficits noted. I have greeted and performed a rapid initial assessment of this patient. A c omprehensive ED assessment and evaluation of the patient, analysis of test results and completion of medical decision making process will be conducted by an additional ED providers. TRAVEL OUTSIDE OF THE [place] IN LAST 30 DAYS: No - Related Data Allergies/Adverse Reactions: amoxicillin Allergy (Verified 08/27/18 11:14) Past Medical History - Social History Chew tobacco use (# tins/day): No Frequency of alcohol use: None Drug Abuse: None Family history: Reviewed & Not Pertinent Endocrine Medical History: Reports: Hx Diabetes Mellitus Type 1, Hx Hypothyroidism Renal/ Medical History: Denies: Hx Peritoneal Dialysis Past Surgical History: Reports: Hx Tonsillectomy Physical Exam - Vital signs Vitals: Temp Pulse Resp BP Pulse Ox 97.6 F 98 16 111/76 98 09/28/18 10:16 09/28/18 10:16 09/28/18 10:16 09/28/18 10:16 09/28/18 10:16 Course - Vital Signs Vital signs: Temp Pulse Resp BP Pulse Ox 97.6 F 98 16 111/76 98 09/28/18 10:16 09/28/18 10:16 09/28/18 10:16 09/28/18 10:16 09/28/18 10:16 Doctor's Discharge - Discharge Referrals: TESS AKINS FNP-C [Primary Care Provider] - Follow up as needed
[2018-09-28 11:10] LABS: ABSOLUTE EOSINOPHILS # (AUTO) 0.1 10^3/uL (0.0-0.6); ABSOLUTE MONOCYTES (AUTO) 0.4 10^3/uL (0.1-1.4); ABSOLUTE NEUT (AUTO) 2.7 10^3/uL (1.7-8.2); BASOPHILS % (AUTO) 0.6 % (0-2); EOSINOPHILS % (AUTO) 1.8 % (0-6); HEMOGLOBIN 14.4 g/dL (12.0-15.5); LYMPHOCYTES % (AUTO) 38.3 % (13-45); MEAN CORPUSCULAR HEMOGLOBIN 30.3 pg (27.0-33.4); MEAN CORPUSCULAR VOLUME 86 fl (80-97); MONOCYTES % (AUTO) 7.5 % (3-13); PLATELET COUNT 292 10^3/uL (150-450); RED BLOOD COUNT 4.74 10^6/uL (3.72-5.28); RED CELL DISTRIBUTION WIDTH 12.7 % (11.5-14.0); SEGMENTED NEUTROPHILS % (AUTO) 51.8 % (42-78); TOTAL CELLS COUNTED % (AUTO) 100 %; WHITE BLOOD COUNT 5.2 10^3/uL (4.0-10.5)
[2018-09-28 11:11] LABS: ALANINE AMINOTRANSFERASE 20 U/L (9-52); ALBUMIN 4.8 g/dL (3.5-5.0); ALKALINE PHOSPHATASE 128 U/L (38-126); ANION GAP 12 (5-19); ASPARTATE AMINO TRANSFERASE 31 U/L (14-36); BILIRUBIN,DIRECT 0.4 mg/dL (0.0-0.4); BILIRUBIN,TOTAL 2.5 mg/dL (0.2-1.3); BLOOD UREA NITROGEN 12 mg/dL (7-20); CALCIUM 9.7 mg/dL (8.4-10.2); CARBON DIOXIDE 24 mmol/L (22-30); CHLORIDE 104 mmol/L (98-107); GLUCOSE 193 mg/dL (75-110); POTASSIUM 4.4 mmol/L (3.6-5.0); TOTAL PROTEIN 8.4 g/dL (6.3-8.2)
--- NOTE | 2018-09-28 11:23 | ER Document Report ---
ED GI/ - General Chief Complaint: Nausea/Vomiting Stated Complaint: VOMITING Time Seen by Provider: 09/28/18 10:34 Primary Care Provider: TESS AKINS FNP-C [Primary Care Provider] - Follow up as needed Mode of Arrival: Ambulatory Information source: Patient Notes: HPI: 23-year-old female with past medical history of Kishor's thyroiditis on thyroid replacement hormone as well as type 1 diabetes who presents today with the onset this morning of multiple bouts of nonbloody nonbilious vomiting. No diarrhea. Mild headache after the vomiting to the frontal region. No blurry or double vision. No fevers. No neck pain. No trauma. No chest pain or kathia rtness of breath. No abdominal pain or discomfort, no dysuria or missed menstrual periods. ROS: See HPI All other review of systems reviewed and otherwise negative Reviewed vital signs and nursing note as charted by RN. PHYSICAL EXAM: CONSTITUTIONAL: Alert and oriented and responds appropriately to questions. Well-appearing; well-nourished HEAD: Normocephalic; atraumatic EYES: PERRL, sclerae non-icteric; full extraocular range of motion ENT: Normal nose; no rhinorrhea; moist mucous membranes; pharynx without lesions noted NECK: Supple without meningismus; non-tender; no cervical lymphadenopathy, no masses CARD: Regular rate and rhythm; no murmurs; symmetric distal pulses RESP: Normal chest excursion without splinting or tachypnea; breath sounds clear and equal bilaterally ABD/GI: Normal bowel sounds; non-distended; soft, non-tender; no palpable organomegaly or masses BACK: The back appears normal and is non-tender to palpation EXT: Normal ROM in all joints; non-tender to palpation; no edema SKIN: No acute lesions noted NEURO: CN 2-12 intact; 5/5 bilateral upper and lower extremity strength with sensation intact to light touch PSYCH: The patient's mood and manner are appropriate. Grooming and personal hygiene are appropriate. TRAVEL OUTSIDE OF THE [place] IN LAST 30 DAYS: No - Related Data Allergies/Adverse Reactions: amoxicillin Allergy (Verified 08/27/18 11:14) Past Medical History - Social History Smoking Status: Current Every Day Smoker Chew tobacco use (# tins/day): No Frequency of alcohol use: None Drug Abuse: None Family History: Reviewed & Not Pertinent Patient has suicidal ideation: No Patient has homicidal ideation: No Endocrine Medical History: Reports: Hx Diabetes Mellitus Type 1, Hx Hypothyroidism Renal/ Medical History: Denies: Hx Peritoneal Dialysis Past Surgical History: Reports: Hx Tonsillectomy Physical Exam - Vital signs Vitals: Temp Pulse Resp BP Pulse Ox 97.6 F 98 16 111/76 98 09/28/18 10:16 09/28/18 10:16 09/28/18 10:16 09/28/18 10:16 09/28/18 10:16 Course - Re-evaluation Re-evalutation: 09/28/18 11:22 Given the history and physical examination we will order basic labs, test, provide fluids and nausea medications, and reassess. Patient's headache came on slowly to the frontal region. No blurry or double vision. No posterior headache or neck pain. No fevers. I do believe subarachnoid hemorrhage and acute bacterial meningitis to be unlikely. Patient is a type I diabetic so we will check the patient's anion gap and glucose levels. Patient's glucose was 160 according the patient prior to departure from the house. 09/28/18 13:53 Imaging and labs as recorded. I did order right upper quadrant ultrasound secondary to the patient having elevated bilirubins, slightly higher than previous visit. Patient still has no tenderness to the abdominal region including the right upper quadrant. Ultrasound as recorded. Patient has passed p.o. challenge. I have sent the patient's urine culture. Allergy to penicillin was a rash. Rocephin has been given with no complications. I will start the patient on Keflex with strict return precautions and a course of nausea medications. - Vital Signs Vital signs: Temp Pulse Resp BP Pulse Ox 97.6 F 98 16 111/76 98 09/28/18 10:16 09/28/18 10:16 09/28/18 10:16 09/28/18 10:16 09/28/18 10:16 - Laboratory Result Diagrams: 09/28/18 10:25 09/28/18 10:25 Laboratory results interpreted by me: 09/28/18 09/28/18 09/28/18 10:20 10:25 10:25 Glucose 193 H Total Bilirubin 2.5 H Alkaline Phosphatase 128 H Total Protein 8.4 H TSH 0.13 L Urine Protein 30 H Urine Glucose (UA) >=500 H Ur Leukocyte Esterase LARGE H Discharge - Discharge Clinical Impression: Vomiting Qualifiers: Vomiting type: unspecified Vomiting Intractability: non-intractable Nausea presence: with nausea Qualified Code(s): R11.2 - Nausea with vomiting, unspecified Condition: Good Disposition: HOME, SELF-CARE Additional Instructions: Come back immediately for any return of headache, vomiting, any fevers, abdominal pain, lightheadedness or dizziness, or any other acute problems. Please follow-up with your primary doctor as we have discussed. Prescriptions: Ondansetron [Zofran Odt 4 mg Tablet] 1 tab PO Q6H #15 tab.rapdis Referrals: TESS AKINS FNP-C [Primary Care Provider] - Follow up as needed
[2018-09-28 11:53] LABS: AMORPHOUS SEDIMENT,URINE TRACE /HPF; APPEARANCE,URINE CLOUDY; BILIRUBIN,URINE NEGATIVE (NEGATIVE); GLUCOSE, URINE >=500 mg/dL (NEGATIVE); KETONES,URINE NEGATIVE (NEGATIVE); LEUKOCYTE ESTERASE,URINE LARGE (NEGATIVE); NITRITE,URINE NEGATIVE (NEGATIVE); PROTEIN,URINE 30 mg/dL (NEGATIVE); URINE SPECIFIC GRAVITY 1.026; UROBILINOGEN,URINE NEGATIVE mg/dL (<2.0)
[2018-09-28 11:54] LABS: COLOR,URINE YELLOW
[2018-09-28] MEDS ORDERED: CEFTRIAXONE 1 GM/D5W RTU 1 GM/50 ML RTUPB IV ONE (12:38)
--- NOTE | 2018-09-28 13:30 | RADIOLOGY REPORT (SQ) ---
EXAM DESCRIPTION: U/S ABDOMEN LIMITED W/O DOP COMPLETED DATE/TIME: 09/28/2018 1:19 pm REASON FOR STUDY: 40; nausea, vomiting, elevated bilirubin and alk p COMPARISON: None. TECHNIQUE: Dynamic and static grayscale images acquired of the abdomen and recorded on PACS. Fredo briana selected color Doppler and spectral images recorded. LIMITATIONS: None. FINDINGS: PANCREAS: No masses. Visualized pancreatic duct normal caliber. LIVER: No masses. Echotexture normal. LIVER VASCULATURE: Normal directional flow of the main portal vein and hepatic veins. GALLBLADDER: No stones. Normal wall thickness. No pericholecystic fluid. ULTRASOUND-DETECTED TOVAR'S SIGN: Negative. INTRAHEPATIC DUCTS AND COMMON DUCT: CBD and intrahepatic ducts normal caliber. No filling defects. INFERIOR VENA CAVA: Normal flow. AORTA: No aneurysm. RIGHT KIDNEY: Normal size. Normal echogenicity. No solid or suspicious masses. No hydronephrosis. No calcifications. PERITONEAL AND RIGHT PLEURAL SPACE: No ascites or effusions. OTHER: No other significant findings. IMPRESSION: NORMAL RIGHT UPPER QUADRANT ULTRASOUND. TECHNICAL DOCUMENTATION: JOB ID: [id number] [employer]- All Rights Reserved Reading location - IP/workstation name: [email or web address]
[2018-09-28 14:11] VITALS: BP 102/54
== END 2018-09-28 14:11 | disposition home or self-care (01) ==
LOC: ER 10:06
DX: R11.2 Nausea with vomiting, unspecified (principal); F17.200 Nicotine dependence, unspecified, uncomplicated; E10.9 Type 1 diabetes mellitus without complications; E03.9 Hypothyroidism, unspecified; Z88.0 Allergy status to penicillin
CPT/HCPCS: 99284; 96361; 96375; 96365; 36415; 87086; 83690; 84443; 84703; 85025; 87088; 80053; 81001; 76705; J1200; J2765; J0780; J7030; J0696

== ENCOUNTER 2018-10-16 07:22 | Emergency (ER) | payer MEDICAID ==
[2018-10-16 07:26] VITALS: BP 118/76
[2018-10-16] MEDS ORDERED: DIPHENHYDRAMINE HCL 50 MG/ML VIAL IV ONE (09:19)
[2018-10-16] MEDS ORDERED: METOCLOPRAMIDE HCL INJ/PF 10 MG/2 ML SDV IV ONE (09:19)
[2018-10-16] MEDS ORDERED: KETOROLAC TROMETHAMINE INJ/PF 30 MG/1 ML SDV IV ONE (09:19)
[2018-10-16] MEDS ORDERED: NORMAL SALINE 1000 ML 1,000 ML IV ONE (09:20)
--- NOTE | 2018-10-16 09:20 | ER Document Report ---
ED Medical Screen (RME) - General Chief Complaint: Headache <24 hrs old Stated Complaint: HEADACHE,VOMITING Time Seen by Provider: 10/16/18 09:14 Mode of Arrival: Ambulatory Information source: Patient Notes: Patient is an otherwise healthy 23-year-old female presenting to the emergency department chief complaint of headache that began at 530 this morning. Patient reports recent history of migraines, states she is seen her primary care provider and is pending a neurology referral. She reports nausea with vomiting, she reports she has vomited at least 8 times this morning. She denies any fever or neck pain. Exam: Patient appears well, nontoxic, alert and oriented and answering all questions. No focal neurological deficits noted. I have greeted and performed a rapid initial assessment of this patient. A comprehensive ED assessment and evaluation of the patient, analysis of test results and completion of the medical decision making process will be conducted by additional ED providers. I have specifically instructed the patient or family members with the patient to immediately return to any nursing staff should anything change in the patient's condition or with their chief complaint. This medical record was dictated with voice recognizing software. There may be grammatical, syntax errors that are unintended. TRAVEL OUTSIDE OF THE [place] IN LAST 30 DAYS: No - Related Data Allergies/Adverse Reactions: amoxicillin Allergy (Verified 10/16/18 07:22) Past Medical History - Social History Frequency of alcohol use: None Drug Abuse: None Family history: Reviewed & Not Pertinent Endocrine Medical History: Reports: Hx Diabetes Mellitus Type 1, Hx Hypothyroidism Renal/ Medical History: Denies: Hx Peritoneal Dialysis Past Surgical History: Reports: Hx Tonsillectomy Physical Exam - Vital signs Vitals: Temp Pulse Resp BP Pulse Ox 97.5 F 92 16 118/76 99 10/16/18 07:25 10/16/18 07:25 10/16/18 07:25 10/16/18 07:25 10/16/18 07:25 Course - Vital Signs Vital signs: Temp Pulse Resp BP Pulse Ox 97.5 F 92 16 118/76 99 10/16/18 07:25 10/16/18 07:25 10/16/18 07:25 10/16/18 07:25 10/16/18 07:25
[2018-10-16] MEDS ORDERED: ACETAMINOPHEN 325 MG TABLET PO ONE (10:10)
--- NOTE | 2018-10-16 10:13 | ER Document Report ---
ED General - General Chief Complaint: Headache <24 hrs old Stated Complaint: HEADACHE,VOMITING Time Seen by Provider: 10/16/18 09:14 Mode of Arrival: Ambulatory Information source: Patient, Parent, [facility] Records Notes: 23-year-old female with type 1 diabetes presents with complaint of headache that started at 5:30 AM this morning. Patient's headache is located across her forehead and described as a throbbing aching pain with associated nausea and vomiting. Patient states that she has had prior similar symptoms. She denies any associated fever, neck pain, head trauma. Patient states pain was gradual in onset. She does report being under a lot of stress recently with her baby in the hospital. Patient has been compliant with her diabetic medication. Accu- Chek is 101. Prior to my exam patient did receive IV fluids, Reglan, Benadryl and Toradol and does report improvement of her headache. Patient has not vomited since receiving the medication and is tolerating p.o. TRAVEL OUTSIDE OF THE [place] IN LAST 30 DAYS: No - HPI Onset: This morning Onset/Duration: Gradual, Persistent Quality of pain: Achy, Throbbing Severity: Moderate Pain Level: 2 Associated symptoms: Headache, Nausea, Vomiting. denies: Allergy/hay fever, Body/muscle aches, Chest pain, Diarrhea, Fever, Shortness of breath, Weakness Exacerbated by: Denies Relieved by: Denies Similar symptoms previously: Yes Recently seen / treated by doctor: No - Related Data Allergies/Adverse Reactions: amoxicillin Allergy (Verified 10/16/18 07:22) Past Medical History - General Information source: Patient - Social History Smoking Status: Never Smoker Frequency of alcohol use: None Drug Abuse: None Lives with: Family Family History: Reviewed & Not Pertinent Patient has suicidal ideation: No Patient has homicidal ideation: No Endocrine Medical History: Reports: Hx Diabetes Mellitus Type 1, Hx Hypothyroidism Renal/ Medical History: Denies: Hx Peritoneal Dialysis Past Surgical History: Reports: Hx Tonsillectomy Review of Systems - Review of Systems Notes: REVIEW OF SYSTEMS: CONSTITUTIONAL : Denies fever, chills, or sweats. Denies recent illness. Denies weight loss, recent hospitalizations. EENT: Denies visual changes, eye pain. Denies sore throat, oral lesions, difficulty swallowing. CARDIOVASCULAR: Denies chest pain. Denies palpitations. Denies lower extremity edema. RESPIRATORY: Denies cough. Denies shortness of breath, wheezing. GASTROINTESTINAL: Denies abdominal pain or distention. Denies diarrhea. Denies blood in vomitus, stools, or per rectum. Denies black, tarry stools. Denies constipation. GENITOURINARY: Denies difficulty urinating, painful urination, frequency, blood in urine, or vaginal discharge. MUSCULOSKELETAL: Denies back or neck pain or stiffness. Denies joint pain or swelling. SKIN: Denies rash, lesions or sores. HEMATOLOGIC : Denies easy bruising or bleeding. LYMPHATIC: Denies swollen glands. NEUROLOGICAL: Denies confusion or altered mental status. Denies loss of consciousness. Denies dizziness or lightheadedness. Denies weakness or paralysis. Denies problems difficulty with ambulation, slurred speech. Denies sensory loss, numbness, or tingling. Denies seizures. PSYCHIATRIC: Denies anxiety or stress. Denies depression, suicidal ideation, or homicidal ideation. Denies visual or auditory hallucinations. Physical Exam - Vital signs Vitals: Temp Pulse Resp BP Pulse Ox 97.5 F 92 16 118/76 99 10/16/18 07:25 10/16/18 07:25 10/16/18 07:25 10/16/18 07:25 10/16/18 07:25 - Notes Notes: PHYSICAL EXAMINATION: GENERAL: Well-appearing, well-nourished and in no acute distress. HEAD: Atraumatic, normocephalic. EYES: Pupils equal round and reactive to light, extraocular movements intact, conjunctiva are normal. No obvious abnormality on funduscopic exam ENT: Nares patent, oropharynx clear without exudates. Moist mucous membranes. NECK: Normal range of motion, supple without lymphadenopathy LUNGS: Breath sounds clear to auscultation bilaterally and equal. No wheezes rales or rhonchi. HEART: Regular rate and rhythm without murmurs ABDOMEN: Soft, nontender, nondistended abdomen. No guarding, no rebound. No masses appreciated. Female : deferred Musculoskeletal: Normal range of motion, no pitting or edema. No cyanosis. NEUROLOGICAL: Mental status; alert and oriented x3. Cranial nerves II through XII intact. Sensation intact to sharp/dull differentiation in all extremities. Motor; normal tone. No abnormal movements appreciated. No pronator drift. Strength tested and 5/5 in bilateral wrist flexion/extension, elbow flexion/extension, shoulder abduction, straight leg raise, knee flexion/extension, ankle dorsiflexion/plantar flexion. Patient ambulates with a steady gait.Coordination; no ataxia. Finger to nose and heel to saunders testing intact bilaterally.Reflexes; brachial radialis, biceps, and patellar reflexes within normal limits and symmetric bilaterally. Babinski with downgoing toes bilaterally. PSYCH: Normal mood, normal affect. SKIN: Warm, Dry, normal turgor, no rashes or lesions noted. Course - Re-evaluation Re-evalutation: 10/16/18 11:02 Laboratory 10/16/18 10:17 POC Glucose 101 Temp Pulse Resp BP Pulse Ox 97.5 F 92 16 118/76 99 10/16/18 07:25 10/16/18 07:25 10/16/18 07:25 10/16/18 07:25 10/16/18 07:25 23-year-old female presents with complaint of headache that started this morning. Patient has had associated nausea and vomiting. Vital signs reviewed and within normal limits. Patient does not appear toxic or dehydrated. She has a normal neurologic exam. Patient did receive IV fluids, Toradol, Benadryl and Reglan and reports resolution of her headache. Accu-Chek is 101. Patient was evaluated and treated as appropriate for the patient's presenting symptoms and complaint, with consideration of any critical or life threatening conditions that may be associated with their obtained history and exam as noted above. All results were discussed with patient and mother was at the bedside. patient provided the opportunity to ask questions, and express concerns. Patient was educated on treatments based on their presumed diagnosis as noted above. At this time we will discharge the patient with return precautions and follow-up recommendations. Verbal discharge instructions given a the bedside. Medication warnings reviewed. Patient is in agreement with this plan and has verbalized understanding of return precautions. After careful consideration I feel that that patient can be safely discharged from the emergency department, they were advised to followup with a primary care physician in 2-3 days. Dictation on this chart was performed using voice recognition software and may result in unintended grammatical, spelling, syntax or errors. - Vital Signs Vital signs: Temp Pulse Resp BP Pulse Ox 97.5 F 92 16 118/76 99 10/16/18 07:25 10/16/18 07:25 10/16/18 07:25 10/16/18 07:25 10/16/18 07:25 Discharge - Discharge Clinical Impression: Headache Qualifiers: Headache type: unspecified Headache chronicity pattern: unspecified pattern Intractability: not intractable Qualified Code(s): R51 - Headache Condition: Good Disposition: HOME, SELF-CARE Instructions: Headache ([facility]) Additional Instructions: You have been seen in the Emergency Department (ED) for a headache. Please use Tylenol (acetaminophen) or Motrin (ibuprofen), Reglan, Benadryl as needed for symptoms, but only as written on the box. As we have discussed, please follow up with your primary care doctor as soon as possible regarding today's ED visit and your headache symptoms. Call your doctor or return to the ED if you have a worsening headache, sudden and severe headache, confusion, slurred speech, facial droop, weakness or numbness in any arm or leg, extreme fatigue, or other symptoms that concern you. Recommendations: It is recommended to followup with a primary care doctor within the next 2 days. If you do not have a primary care doctor or you are unable to get an apointment during that time, I left the number for some internal medicine physicians that are affiliated with this [facility]. Dr. Linda Velez [address], [place] [address] [phone] Dr Martin Address: [address] [place] [address] [place] [address] Dr Arvizu Address: [address] [place] [address] [place] [address] Prescriptions: Metoclopramide HCl [Reglan 10 mg Tablet] 1 tab PO Q8H PRN #10 tablet PRN Reason: For Headache
== END 2018-10-16 10:26 | disposition home or self-care (01) ==
LOC: ER 07:22
DX: R51 Headache (principal); R11.2 Nausea with vomiting, unspecified; E10.9 Type 1 diabetes mellitus without complications; Z88.0 Allergy status to penicillin
CPT/HCPCS: 99284; 96361; 96374; 96375; 82962; J3490; J1200; J1885; J2765; J7030